=== PATIENT | female | born 1995 | race Two or more races ===

== ENCOUNTER 2016-06-11 10:35 | Emergency (ER) | payer SELFPAY ==
--- NOTE | 2016-06-11 10:50 | ED ---
URI HPI - General Chief Complaint: Upper Respiratory Infection Stated Complaint: flu like symptoms Time Seen by Provider: 06/11/16 10:40 Source: patient, RN notes reviewed Mode of arrival: ambulatory Limitations: no limitations - History of Present Illness Initial Comments: 21-year-old female presenting emergency department with chief complaint of cold like symptoms. Patient states her symptoms started on Thursday. Patient was seen at [facility] and states that she forgot to get a work no. Patient states her symptoms are getting better but she does not feel 100% better. Patient states she itches diagnosed with influenza though she cannot take Tamiflu. Patient has not had a fever last for 4 hours. Patient states she needs a work no as she is a [employer]. Patient denies any other complaints. Patient states she had cough and runny nose fever. - Related Data Home Medications Medication Instructions Recorded Confirmed Albuterol Inhaler [Ventolin 2 sprays INHALATION BID 02/23/15 02/23/15 Inhaler] HYDROcodone/APAP 5-325MG [[place] 1 tab PO Q6HR PRN 02/23/15 02/23/15 5-325] Previous Rx's Medication Instructions Recorded Amoxicillin/Potassium Clav 1 each PO Q12HR #20 tab 02/21/15 [Augmentin 875-125 Tablet] Hydrocodone/Acetaminophen [[place] 1 - 2 each PO Q6HR PRN #60 tab 02/23/15 5-325] Allergies Allergy/AdvReac Type Severity Reaction Status Date / Time latex Allergy Rash/Hives Verified 02/23/15 12:14 red dye Allergy Rash/Hives Verified 02/21/15 10:14 Review of Systems ROS Statement: Those systems with pertinent positive or pertinent negative responses have been documented in the HPI. ROS Other: All systems not noted in ROS Statement are negative. Past Medical History Past Medical History: Asthma History of Any Multi-Drug Resistant Organisms: None Reported Past Surgical History: No Surgical Hx Reported Additional Past Surgical History / Comment(s): D&C Past Anesthesia/Blood Transfusion Reactions: No Reported Reaction Past Psychological History: Anxiety, Bipolar Smoking Status: Current every day smoker Past Alcohol Use History: Rare Past Drug Use History: Marijuana General Exam Limitations: no limitations General appearance: alert, in no apparent distress Head exam: Present: atraumatic, normocephalic, normal inspection Eye exam: Present: normal appearance, PERRL, EOMI. Absent: scleral icterus, conjunctival injection, periorbital swelling ENT exam: Present: normal exam, normal oropharynx, mucous membranes moist, TM's normal bilaterally, normal external ear exam Neck exam: Present: normal inspection. Absent: tenderness, meningismus, lymphadenopathy Respiratory exam: Present: normal lung sounds bilaterally. Absent: respiratory distress, wheezes, rales, rhonchi, stridor Cardiovascular Exam: Present: regular rate, normal rhythm, normal heart sounds. Absent: systolic murmur, diastolic murmur, rubs, gallop, clicks Course Vital Signs 06/11/16 10:37 Temperature 97.3 F L Pulse Rate 89 Respiratory 16 Rate Blood Pressure 122/62 O2 Sat by Pulse 98 Oximetry Disposition Clinical Impression: Upper respiratory infection Disposition: HOME SELF-CARE Condition: Stable Instructions: Upper Respiratory Infection (ED) Additional Instructions: Please return to the Emergency Department if symptoms worsen or any other concerns. Referrals: None,Stated [Primary Care Provider] - 1-2 days Time of Disposition: 10:50
[2016-06-11 11:06] VITALS: BP 112/64; PULSE 82; RESP 18; TEMP 97.8
== END 2016-06-11 11:06 | disposition home or self-care (01) ==
LOC: EC 10:35
DX: J06.9 Acute upper respiratory infection, unspecified (principal); J45.909 Unspecified asthma, uncomplicated; F17.200 Nicotine dependence, unspecified, uncomplicated; Z79.899 Other long term (current) drug therapy; Z91.040 Latex allergy status; Z91.048 Other nonmedicinal substance allergy status
CPT/HCPCS: 99283

== ENCOUNTER 2016-09-28 21:28 | Emergency (ER) | payer SELFPAY ==
[2016-09-28 22:06] VITALS: TEMP 98
--- NOTE | 2016-09-28 22:20 | ED ---
Wound/Laceration HPI - General Stated Complaint: ankle lac-IHS Time Seen by Provider: 09/28/16 22:02 Source: patient Mode of arrival: ambulatory Limitations: no limitations - History of Present Illness Initial Comments: Patient is a 21-year-old white female presenting to the emergency department with complaints of a laceration to her right lateral lower extremity proximal to her right ankle. Onset of injury approximately 2 hours prior to arrival. 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 Patient states that the staff at the snf cleaned the wound. Patient currently complains of a burning pain, rated 4 out of 10, no relieving or aggravating factors. Patient denies numbness or tingling. Patient denies taking any medication prior to arrival. Patient states she is up-to-date on tetanus immunization. Patient denies previous injury or trauma to right lower extremity. Associated Symptoms: none Treatments Prior to Arrival: cold therapy - Related Data Home Medications Medication Instructions Recorded Confirmed No Known Home Medications [No 06/11/16 09/28/16 Known Home Medications] Allergies Allergy/AdvReac Type Severity Reaction Status Date / Time latex Allergy Rash/Hives Verified 09/28/16 22:06 red dye Allergy Rash/Hives Verified 09/28/16 22:06 Review of Systems ROS Statement: Those systems with pertinent positive or pertinent negative responses have been documented in the HPI. ROS Other: All systems not noted in ROS Statement are negative. Past Medical History Past Medical History: Asthma History of Any Multi-Drug Resistant Organisms: None Reported Past Surgical History: No Surgical Hx Reported Additional Past Surgical History / Comment(s): D&C Past Anesthesia/Blood Transfusion Reactions: No Reported Reaction Past Psychological History: Anxiety, Bipolar Smoking Status: Current every day smoker Past Alcohol Use History: Rare Past Drug Use History: Marijuana General Exam Limitations: no limitations General appearance: alert, in no apparent distress Eye exam: Present: normal appearance ENT exam: Present: normal exam, mucous membranes moist, normal external ear exam Neck exam: Present: normal inspection, full ROM. Absent: tenderness, lymphadenopathy Respiratory exam: Present: normal lung sounds bilaterally. Absent: respiratory distress, wheezes, rales, rhonchi, stridor Cardiovascular Exam: Present: regular rate, normal rhythm, normal heart sounds. Absent: systolic murmur GI/Abdominal exam: Present: soft, normal bowel sounds. Absent: tenderness Right Knee exam: Present: normal inspection, full ROM. Absent: tenderness, swelling Lower Leg exam: Present: normal inspection, full ROM, laceration (2 cm linear laceration noted to right lower extremity proximal and lateral to right lateral malleolus.) Ankle exam: Present: normal inspection, full ROM. Absent: tenderness, swelling Foot/Toe exam: Present: normal inspection, full ROM. Absent: tenderness, swelling Neurovascular tendon exam: Present: no vascular compromise. Absent: abnormal cap refill, motor deficit, sensory deficit, tendon deficit, extremity cold to touch, foot drop, significant pain with passive ROM of distal joint Gait: observed and normal Course Vital Signs 09/28/16 22:03 Temperature 98.0 F Pulse Rate 78 Respiratory 18 Rate Blood Pressure 128/75 O2 Sat by Pulse 97 Oximetry Procedures - Laceration Laceration #1 Consent Obtained: verbal consent Indication: laceration Site: lower extremity (Right lower lateral extremity) Size (cm): 2 Description: linear Depth: simple, single layer Anesthetic Used: lidocaine 1% Anesthesia Technique: local infiltration Amount (mls): 2 Pre-repair: wound explored, irrigated extensively, deep structures intact Type of Sutures: nylon Size of Sutures: 5-0 Number of Sutures: 5 Technique: simple, interrupted (4 sutures), vertical mattress Patient Tolerated Procedure: well, no complications Medical Decision Making - Medical Decision Making Laceration to right lateral lower leg proximal to right lateral malleolus. X- ray of right lateral leg with no evidence of foreign body, fracture, dislocation. Laceration repaired. Patient tolerated well. Patient educated on wound care. Patient instructed to return for suture removal and signs and symptoms of infection. Discharge instructions and return parameters reviewed. - Radiology Data Radiology results: report reviewed X-ray right ankle: Soft tissue defect in the lateral lower leg with no evidence of retained radiopaque foreign body. No acute fracture, no dislocation. As read by radiologist Dr. Shetty. Disposition Clinical Impression: Laceration Disposition: HOME SELF-CARE Condition: Good Instructions: Care For Your Stitches (ED), Laceration (ED) Additional Instructions: Postop wound care: Keep wound dry and clean for 24 hours; if dressing accidentally becomes wet, change dressing immediately. Gently clean the edges of the wound daily with a cotton swab saturated with peroxide to remove crust. Return immediately if signs of infection occur such as redness or red streaks progressing up and extremity, increasing pain, swelling, or fevers. Please return for suture removal in 7-10 days or sooner if signs of infection. Please return to the emergency department if symptoms do not improve or get worse. Referrals: None,Stated [Primary Care Provider] - 1-2 days Time of Disposition: 23:01
[2016-09-28] MEDS ORDERED: IBUPROFEN 800 MG TAB PO STA (22:21)
--- NOTE | 2016-09-28 22:39 | XR ---
EXAM: XR Right Ankle Complete, 3 Views CLINICAL HISTORY: Reason: Pain TECHNIQUE: Frontal, lateral and oblique views of the right ankle. COMPARISON: No relevant prior studies available. FINDINGS: Bones/joints: Unremarkable. No acute fracture. No dislocation. Soft tissues: Soft tissue defect in the lateral lower leg with no evidence of retained radiopaque foreign body. IMPRESSION: Soft tissue defect in the lateral lower leg with no evidence of retained radiopaque foreign body.
[2016-09-28 23:34] VITALS: BP 124/60; PULSE 80; RESP 16
== END 2016-09-28 23:32 | disposition home or self-care (01) ==
LOC: EC 21:28
DX: S91.011A Laceration without foreign body, right ankle, initial encounter (principal); W26.8XXA Contact with other sharp object(s), not elsewhere classified, initial encounter; Y93.89 Activity, other specified; Y92.129 Unspecified place in nursing home as the place of occurrence of the external cause; Y99.0 Civilian activity done for income or pay; Z91.040 Latex allergy status; F17.200 Nicotine dependence, unspecified, uncomplicated
CPT/HCPCS: 12001; 99282

== ENCOUNTER 2016-10-15 21:59 | Emergency (ER) | payer OTHER ==
[2016-10-15 22:11] VITALS: BP 115/55; PULSE 74; RESP 20; TEMP 98
--- NOTE | 2016-10-15 22:17 | ED ---
General Adult HPI - General Chief complaint: Extremity Injury, Lower Stated complaint: IHS/Foot Injury Time Seen by Provider: 10/15/16 22:12 Source: patient, RN notes reviewed Mode of arrival: wheelchair Limitations: no limitations - History of Present Illness Initial comments: Patient 21-year-old female who presents emergency room today with a chief complaint of an injury to her right foot that occurred approximate 2 hours ago while she was at work. She does admit that her wheelchair accidentally ran over her right foot. She does admit some pain tenderness locally to the first second metatarsals and digits. Denies any other complaints or associated symptoms. States she has full range motion. Patient denies any recent fever, chills, shortness of breath, chest pain, back pain, abdominal pain, nausea or vomiting, numbness or tingling, dysuria or hematuria, constipation or diarrhea, headaches or visual changes, or any other complaints. - Related Data Previous Rx's Medication Instructions Recorded Ibuprofen [Motrin] 600 mg PO Q6HR PRN #20 day 10/15/16 Allergies Allergy/AdvReac Type Severity Reaction Status Date / Time latex Allergy Rash/Hives Verified 10/15/16 22:11 red dye Allergy Rash/Hives Verified 10/15/16 22:11 Review of Systems ROS Statement: Those systems with pertinent positive or pertinent negative responses have been documented in the HPI. ROS Other: All systems not noted in ROS Statement are negative. Past Medical History Past Medical History: Asthma History of Any Multi-Drug Resistant Organisms: None Reported Past Surgical History: No Surgical Hx Reported Additional Past Surgical History / Comment(s): D&C Past Anesthesia/Blood Transfusion Reactions: No Reported Reaction Past Psychological History: Anxiety, Bipolar Smoking Status: Current every day smoker Past Alcohol Use History: Rare Past Drug Use History: Marijuana General Exam - General Exam Comments Initial Comments: General: The patient is awake and alert, in no distress, and does not appear acutely ill. Neck: The neck is supple, there is no tenderness or JVD. Cardiovascular: There is a regular rate and rhythm. No murmur, rub or gallop is appreciated. Respiratory: Lungs are clear to auscultation, respirations are non-labored, breath sounds are equal. No wheezes, stridor, rales, or rhonchi. Musculoskeletal: Normal appearance of the right foot no obvious deformity. Shows good range of motion. Sensations intact. Pulses equal bilaterally 2+. Mild tenderness over the first and second digit along with the first and second metatarsal. No other bony tenderness to the right ankle or knee Neurological: A&O x 3. CN II-XII intact, There are no obvious motor or sensory deficits. Coordination appears grossly intact. Speech is normal. Skin: Skin is warm and dry and no rashes or lesions are noted. Psychiatric: Normal mood and affect. Limitations: no limitations Course Vital Signs 10/15/16 22:09 Temperature 98.0 F Pulse Rate 74 Respiratory 20 Rate Blood Pressure 115/55 O2 Sat by Pulse 99 Oximetry Medical Decision Making - Medical Decision Making X-rays negative for any acute fracture dislocation. Results were discussed with the patient. Disposition Clinical Impression: Foot contusion Disposition: HOME SELF-CARE Condition: Good Instructions: Foot Contusion (ED) Additional Instructions: Please ice elevate the affected area as discussed and follow-up in 7-10 days if symptoms persist for repeat x-rays. Please return to emergency room if the symptoms increase or worsen or for any other concerns. Prescriptions: Ibuprofen [Motrin] 600 mg PO Q6HR PRN #20 day PRN Reason: Pain Referrals: None,Stated [Primary Care Provider] - 1-2 days Santos Nobles MD [STAFF PHYSICIAN] - 1-2 days Time of Disposition: 22:35
--- NOTE | 2016-10-15 22:33 | XR ---
EXAM: XR Right Foot Complete, 3 or More Views CLINICAL HISTORY: Reason: Pain in the 1st and 2nd digit, toes ran over by a wheelchair. TECHNIQUE: Frontal, lateral and oblique views of the right foot. COMPARISON: None FINDINGS: Bones/joints: No acute fracture or dislocation identified. No significant arthropathy or bony lesion. Soft tissues: Normal. IMPRESSION: No acute abnormality identified.
== END 2016-10-15 22:56 | disposition home or self-care (01) ==
LOC: EC 21:59
DX: S90.30XA Contusion of unspecified foot, initial encounter (principal); W22.8XXA Striking against or struck by other objects, initial encounter; Z91.040 Latex allergy status; Z91.048 Other nonmedicinal substance allergy status; F17.200 Nicotine dependence, unspecified, uncomplicated
CPT/HCPCS: 99283

== ENCOUNTER 2017-04-30 16:50 | Emergency (ER) | payer OTHER ==
--- NOTE | 2017-04-30 18:31 | ED ---
Skin/Abscess/FB HPI - General Chief complaint: Skin/Abscess/Foreign Body Stated complaint: Urogenital, cyst on vagina Time Seen by Provider: 04/30/17 18:17 Source: patient, RN notes reviewed, old records reviewed Mode of arrival: ambulatory Limitations: no limitations - History of Present Illness Initial comments: This patient is a 22-year-old female presents emergency department today chief complaint of an abscess over her right labia. Patient reports that she noticed that initially started as a small pimple approximately one month ago. She states the last week she noticed it started to go grocery the size of a golf ball. She reports that currently it seems to be the size of a small apple. Patient states that she has normal urination in bowel habits. She denies any fever or chills. She does not see an RETAIL DEPARTMENT MANAGER regularly. She denies any chance of and patient is currently on her menstrual cycle. - Related Data Previous Rx's Medication Instructions Recorded HYDROcodone/APAP 5-325MG [[place] 1 tab PO Q6HR PRN #15 tab 04/30/17 5-325] Sulfamethox-Tmp 800-160Mg [Bactrim 1 tab PO Q12HR #40 tab 04/30/17 DS 800-160 mg] Allergies Allergy/AdvReac Type Severity Reaction Status Date / Time diphenhydramine Allergy Unknown Verified 04/30/17 18:48 [From Benadryl] Childhood latex Allergy Rash/Hives Verified 04/30/17 18:48 red dye Allergy Rash/Hives Verified 04/30/17 18:48 venom-honey bee Allergy Anaphylaxis Verified 04/30/17 18:48 Review of Systems ROS Statement: Those systems with pertinent positive or pertinent negative responses have been documented in the HPI. ROS Other: All systems not noted in ROS Statement are negative. Past Medical History Past Medical History: Asthma History of Any Multi-Drug Resistant Organisms: None Reported Past Surgical History: No Surgical Hx Reported Additional Past Surgical History / Comment(s): D&C, left foot sx Past Anesthesia/Blood Transfusion Reactions: No Reported Reaction Past Psychological History: Anxiety, Bipolar Smoking Status: Current every day smoker Past Alcohol Use History: Rare Past Drug Use History: Marijuana General Exam - General Exam Comments Initial Comments: This patient is a 22-year-old female. No acute distress. Alert and oriented. Limitations: no limitations General appearance: alert, in no apparent distress Head exam: Present: atraumatic, normocephalic, normal inspection Eye exam: Present: normal appearance, PERRL, EOMI. Absent: scleral icterus, conjunctival injection, periorbital swelling ENT exam: Present: normal exam, mucous membranes moist Neck exam: Present: normal inspection. Absent: tenderness, meningismus, lymphadenopathy Respiratory exam: Present: normal lung sounds bilaterally. Absent: respiratory distress, wheezes, rales, rhonchi, stridor Cardiovascular Exam: Present: regular rate, normal rhythm, normal heart sounds. Absent: systolic murmur, diastolic murmur, rubs, gallop, clicks GI/Abdominal exam: Present: soft, normal bowel sounds. Absent: distended, tenderness, guarding, rebound, rigid External exam: Present: normal external exam, erythema, swelling (Estrada has significant swelling and erythema noted over the right labia majora.). Absent: lesions, lacerations, ecchymosis Extremities exam: Present: normal inspection, full ROM, normal capillary refill. Absent: tenderness, pedal edema, joint swelling, calf tenderness Back exam: Present: normal inspection Neurological exam: Present: alert, oriented X3, CN II-XII intact Psychiatric exam: Present: normal affect, normal mood Skin exam: Present: warm, dry, intact, normal color. Absent: rash Course Vital Signs 04/30/17 04/30/17 16:57 19:28 Temperature 98.9 F 98.5 F Pulse Rate 109 H 78 Respiratory 18 16 Rate Blood Pressure 147/60 113/62 O2 Sat by Pulse 98 98 Oximetry Procedures - Incision & Drainage Site: vulva/vagina (right bartholin gland abscess) Anesthetic Used: lidocaine 1% Amount (mLs): 3 I&D Cleaning Method: Iodine Sterile Field Used?: Yes Scalpel Used: #11 I&D Drainage Obtained: Pus, Blood Packing: Other (word catheter) Culture Obtained?: Yes Patient Tolerated Procedure: well, no complications Medical Decision Making - Medical Decision Making This patient is a 22-year-old female presents emergency department today chief complaint of an abscess over her right labia. Patient reports that she noticed that initially started as a small pimple approximately one month ago. She states the last week she noticed it started to go grocery the size of a golf ball. Patient has evidence of a Bartholin's gland abscess. I hate did do incision and drainage in place in word catheter in the area. Patient will be started on Bactrim. One culture was obtained. Patient will follow up with OB/ [employer]AB[employer]ER. All questions were answered in return parameters were discussed. Discharge with pain medicine Antibiotics. Discussed sits baths. Disposition Clinical Impression: Bartholin's gland abscess Disposition: HOME SELF-CARE Condition: Good Instructions: Bartholin Cyst (ED) Additional Instructions: Patient advised to follow-up with RETAIL DEPARTMENT MANAGER within the next 1-2 days. If the Word catheter falls out, apply gauze over the area. Patient should do warm sits baths. Take the antibiotics as directed. Return to the emergency department if any alarming signs or symptoms occur. Prescriptions: HYDROcodone/APAP 5-325MG [[place] 5-325] 1 tab PO Q6HR PRN #15 tab PRN Reason: Pain Sulfamethox-Tmp 800-160Mg [Bactrim DS 800-160 mg] 1 tab PO Q12HR #40 tab Referrals: None,Stated [Primary Care Provider] - 1-2 days Lala Reid MD [STAFF PHYSICIAN] - 1-2 days Time of Disposition: 19:02
[2017-04-30] MEDS ORDERED: SULFAMETH-TMP DS STARTER PACK 2 TAB BTL PO STA (19:07)
[2017-04-30] MEDS ORDERED: HYDROcodone/APAP 5-325MG 1 EACH TAB PO STA (19:07)
[2017-04-30 19:28] VITALS: BP 113/62; PULSE 78; RESP 16; TEMP 98.5
== END 2017-04-30 19:30 | disposition home or self-care (01) ==
LOC: EC 16:50
DX: N75.1 Abscess of Bartholin's gland (principal); F17.200 Nicotine dependence, unspecified, uncomplicated; Z98.890 Other specified postprocedural states; Z91.040 Latex allergy status; Z91.02 Food additives allergy status; Z91.030 Bee allergy status
CPT/HCPCS: 87070; 87205; 99283

== ENCOUNTER 2017-05-05 07:06 | Emergency (ER) | payer OTHER ==
[2017-05-05] MEDS ORDERED: MORPHINE SULFATE 2 MG/ML SYRINGE IV STA (07:37)
[2017-05-05] MEDS ORDERED: SODIUM CHLORIDE 0.9% 1,000 ML IV STA (07:37)
[2017-05-05] MEDS ORDERED: ONDANSETRON 4 MG/2 ML VIAL IVP STA (07:37)
[2017-05-05] MEDS ORDERED: RX INFO: IV CONTRAST WAS GIVEN 1 EACH MISC MISCELLANE PRN (07:37)
[2017-05-05] MEDS ORDERED: SODIUM CHLORIDE 0.9% 500 ML IV STA (07:37)
[2017-05-05 07:52] LABS: Basophils % (A) 0 %; Eosinophils # (A) 0.1 k/uL (0-0.7); Eosinophils % (A) 1 %; HCT 42.4 % (34.0-46.0); HGB 13.8 gm/dL (11.4-16.0); Lymphocytes % (A) 14 %; MCH 27.5 pg (25.0-35.0); MCHC 32.4 g/dL (31.0-37.0); MCV 84.9 fL (80.0-100.0); Mean Platelet Volume 6.7; Monocytes # (A) 0.4 k/uL (0-1.0); Monocytes % (A) 5 %; Neutrophils # (A) 5.4 k/uL (1.3-7.7); Neutrophils % (A) 77 %; Platelet Count 306 k/uL (150-450)
--- NOTE | 2017-05-05 07:54 | ED ---
General Adult HPI - General Chief complaint: Nausea/Vomiting/Diarrhea Stated complaint: vomiting Time Seen by Provider: 05/05/17 07:28 Source: patient, family, RN notes reviewed Mode of arrival: wheelchair Limitations: no limitations - History of Present Illness Initial comments: 22-year-old female presented for evaluation of worsening pelvic pain. Patient had a global cyst drained approximately 5 days ago in the emergency partner. She was placed on pain medication and antibiotics. She has been unable to tolerate her pain medications secondary to nausea and vomiting. She also has worsening pain. Patient has past medical history of asthma. States she is having some lower abdominal pain and thigh pain associated with her labial abscess. She also complains of cough and nasal congestion. Denies dysuria. Subjective fever and chills. - Related Data Previous Rx's Medication Instructions Recorded HYDROcodone/APAP 5-325MG [[place] 1 tab PO Q6HR PRN #15 tab 04/30/17 5-325] Sulfamethox-Tmp 800-160Mg [Bactrim 1 tab PO Q12HR #40 tab 04/30/17 DS 800-160 mg] HYDROcodone/APAP 5-325MG [[place] 1 tab PO Q6HR PRN #12 tab 05/05/17 5-325] Ibuprofen [Motrin] 600 mg PO Q8HR PRN #24 tab 05/05/17 Oseltamivir [Tamiflu] 75 mg PO Q12HR #10 cap 05/05/17 Allergies Allergy/AdvReac Type Severity Reaction Status Date / Time diphenhydramine Allergy Unknown Verified 05/05/17 07:51 [From Benadryl] Childhood latex Allergy Rash/Hives Verified 05/05/17 07:51 red dye Allergy Rash/Hives Verified 05/05/17 07:51 venom-honey bee Allergy Anaphylaxis Verified 05/05/17 07:51 Review of Systems ROS Statement: Those systems with pertinent positive or pertinent negative responses have been documented in the HPI. ROS Other: All systems not noted in ROS Statement are negative. Past Medical History Past Medical History: Asthma History of Any Multi-Drug Resistant Organisms: None Reported Past Surgical History: No Surgical Hx Reported, Orthopedic Surgery Additional Past Surgical History / Comment(s): D&C, left foot sx Past Anesthesia/Blood Transfusion Reactions: No Reported Reaction Past Psychological History: Anxiety, Bipolar Smoking Status: Current every day smoker Past Alcohol Use History: Rare Past Drug Use History: Marijuana General Exam Limitations: no limitations General appearance: alert, in distress Head exam: Present: atraumatic, normocephalic Eye exam: Present: normal appearance, PERRL, EOMI ENT exam: Present: normal exam Neck exam: Present: normal inspection. Absent: tenderness, meningismus Respiratory exam: Present: normal lung sounds bilaterally. Absent: respiratory distress, wheezes Cardiovascular Exam: Present: regular rate, normal rhythm GI/Abdominal exam: Present: soft. Absent: distended, tenderness External exam: Present: swelling (Right labial swelling and erythema, improving compared to previous exam.) Extremities exam: Present: normal inspection, full ROM, tenderness Back exam: Present: normal inspection, full ROM, tenderness Neurological exam: Present: alert, oriented X3, CN II-XII intact. Absent: motor sensory deficit Psychiatric exam: Present: normal affect, normal mood Skin exam: Present: warm, dry, intact. Absent: cyanosis, diaphoretic Course Vital Signs 05/05/17 05/05/17 07:10 08:49 Temperature 100.5 F H Pulse Rate 100 83 Respiratory 26 H 16 Rate Blood Pressure 133/71 127/59 O2 Sat by Pulse 98 98 Oximetry Procedures - Incision & Drainage Consent Obtained: verbal consent Time Out Performed?: Yes Indication: Bartholin's gland abscess Site: vulva/vagina Anesthetic Used: lidocaine 1% Amount (mLs): 3 I&D Cleaning Method: Betadine Sterile Field Used?: Yes Scalpel Used: #11 I&D Drainage Obtained: Pus, Blood Packing: Plain Patient Tolerated Procedure: well Medical Decision Making - Medical Decision Making 22-year-old female presenting with swelling symptoms and pain and swelling in her right labia. She recently had a Bartholin's gland abscess incised. Pain is been worsening. On examination, patient does have a large fluctuant mass consistent with abscess. CT is obtained given the patient's state of extremities on presentation. This is negative for intra-abdominal findings, there is a 3.7 cm x 2.[address] Laboratory studies reveal normal white blood cell count, stable hemoglobin, normal lactic acid, patient's influenza A positive. She does have history of asthma and will be treated with Tamiflu. She is also instructed to continue her antibiotics for her Bartholin's gland abscess. She will follow-up with BRAIN WAVE TECHNICIAN and her primary care physician. - Lab Data Result diagrams: 05/05/17 07:40 05/05/17 07:40 Lab Results 05/05/17 05/05/17 05/05/17 Range/Units 07:40 07:40 07:40 WBC 7.0 (3.8-10.6) k/uL RBC 5.00 (3.80-5.40) m/uL Hgb 13.8 (11.4-16.0) gm/dL Hct 42.4 (34.0-46.0) % MCV 84.9 (80.0-100.0) fL MCH 27.5 (25.0-35.0) pg MCHC 32.4 (31.0-37.0) g/dL RDW 13.0 (11.5-15.5) % Plt Count 306 (150-450) k/uL Neutrophils % 77 % Lymphocytes % 14 % Monocytes % 5 % Eosinophils % 1 % Basophils % 0 % Neutrophils # 5.4 (1.3-7.7) k/uL Lymphocytes # 1.0 (1.0-4.8) k/uL Monocytes # 0.4 (0-1.0) k/uL Eosinophils # 0.1 (0-0.7) k/uL Basophils # 0.0 (0-0.2) k/uL Sodium 139 (137-145) mmol/L Potassium 4.3 (3.5-5.1) mmol/L Chloride 104 (98-107) mmol/L Carbon Dioxide 20 L (22-30) mmol/L Anion Gap 15 mmol/L BUN 10 (7-17) mg/dL Creatinine 0.83 (0.52-1.04) mg/dL Est GFR (MDRD) Af Amer >60 (>60 ml/min/1.73 sqM) Est GFR (MDRD) Non-Af >60 (>60 ml/min/1.73 sqM) Glucose 113 H (74-99) mg/dL Plasma Lactic Acid Ashish 1.3 (0.7-2.0) mmol/L Calcium 9.7 (8.4-10.2) mg/dL Total Bilirubin 0.4 (0.2-1.3) mg/dL AST 22 (14-36) U/L ALT 21 (9-52) U/L Alkaline Phosphatase 70 (38-126) U/L Total Protein 7.1 (6.3-8.2) g/dL Albumin 4.2 (3.5-5.0) g/dL Amylase 44 (30-110) U/L Lipase 38 (23-300) U/L Urine Color Urine Appearance (Clear) Urine pH (5.0-8.0) Ur Specific [place] (1.001-1.035) Urine Protein (Negative) Urine Glucose (UA) (Negative) Urine Ketones (Negative) Urine Blood (Negative) Urine Nitrite (Negative) Urine Bilirubin (Negative) Urine Urobilinogen (<2.0) mg/dL Ur Leukocyte Esterase (Negative) Urine RBC (0-5) /hpf Urine WBC (0-5) /hpf Ur Squamous Epith Cells (0-4) /hpf Urine Mucus (None) /hpf Urine HCG, Qual (Not Detectd) Influenza Type A RNA (Not Detectd) Influenza Type B (PCR) (Not Detectd) 05/05/17 05/05/17 05/05/17 Range/Units 07:51 08:08 08:08 WBC (3.8-10.6) k/uL RBC (3.80-5.40) m/uL Hgb (11.4-16.0) gm/dL Hct (34.0-46.0) % MCV (80.0-100.0) fL MCH (25.0-35.0) pg MCHC (31.0-37.0) g/dL RDW (11.5-15.5) % Plt Count (150-450) k/uL Neutrophils % % Lymphocytes % % Monocytes % % Eosinophils % % Basophils % % Neutrophils # (1.3-7.7) k/uL Lymphocytes # (1.0-4.8) k/uL Monocytes # (0-1.0) k/uL Eosinophils # (0-0.7) k/uL Basophils # (0-0.2) k/uL Sodium (137-145) mmol/L Potassium (3.5-5.1) mmol/L Chloride (98-107) mmol/L Carbon Dioxide (22-30) mmol/L Anion Gap mmol/L BUN (7-17) mg/dL Creatinine (0.52-1.04) mg/dL Est GFR (MDRD) Af Amer (>60 ml/min/1.73 sqM) Est GFR (MDRD) Non-Af (>60 ml/min/1.73 sqM) Glucose (74-99) mg/dL Plasma Lactic Acid Ashish (0.7-2.0) mmol/L Calcium (8.4-10.2) mg/dL Total Bilirubin (0.2-1.3) mg/dL AST (14-36) U/L ALT (9-52) U/L Alkaline Phosphatase (38-126) U/L Total Protein (6.3-8.2) g/dL Albumin (3.5-5.0) g/dL Amylase (30-110) U/L Lipase (23-300) U/L Urine Color Yellow Urine Appearance Cloudy H (Clear) Urine pH 6.0 (5.0-8.0) Ur Specific [place] 1.024 (1.001-1.035) Urine Protein 1+ H (Negative) Urine Glucose (UA) Negative (Negative) Urine Ketones 2+ H (Negative) Urine Blood Negative (Negative) Urine Nitrite Negative (Negative) Urine Bilirubin Negative (Negative) Urine Urobilinogen <2.0 (<2.0) mg/dL Ur Leukocyte Esterase Trace H (Negative) Urine RBC 16 H (0-5) /hpf Urine WBC 3 (0-5) /hpf Ur Squamous Epith Cells 7 H (0-4) /hpf Urine Mucus Moderate H (None) /hpf Urine HCG, Qual Not Detected (Not Detectd) Influenza Type A RNA Detected H (Not Detectd) Influenza Type B (PCR) Not Detected (Not Detectd) Disposition Clinical Impression: Influenza A, Bartholin's gland abscess Disposition: HOME SELF-CARE Condition: Good Instructions: Bartholin Cyst (ED), Incision and Drainage (ED) Prescriptions: HYDROcodone/APAP 5-325MG [[place] 5-325] 1 tab PO Q6HR PRN #12 tab PRN Reason: Pain Ibuprofen [Motrin] 600 mg PO Q8HR PRN #24 tab PRN Reason: Pain Oseltamivir [Tamiflu] 75 mg PO Q12HR #10 cap Referrals: None,Stated [Primary Care Provider] - 1-2 days Lala Reid MD [STAFF PHYSICIAN] - 1-2 days Time of Disposition: 10:38
[2017-05-05 08:17] LABS: ALT 21 U/L (9-52); AST 22 U/L (14-36); Albumin 4.2 g/dL (3.5-5.0); Alkaline Phosphatase 70 U/L (38-126); Amylase 44 U/L (30-110); Anion Gap 15 mmol/L; Blood Urea Nitrogen 10 mg/dL (7-17); Calcium 9.7 mg/dL (8.4-10.2); Carbon Dioxide 20 mmol/L (22-30); Chloride 104 mmol/L (98-107); Glucose 113 mg/dL (74-99); Lipase 38 U/L (23-300); Potassium 4.3 mmol/L (3.5-5.1); Sodium 139 mmol/L (137-145); Total Bilirubin 0.4 mg/dL (0.2-1.3); Total Protein 7.1 g/dL (6.3-8.2)
[2017-05-05 08:23] LABS: Appearance,Urine Cloudy (Clear); Bilirubin,Urine Negative (Negative); Blood,Urine Negative (Negative); Color,Urine Yellow; Glucose,Urine (UA) Negative (Negative); Ketones,Urine 2+ (Negative); Leukocyte Esterase,Urine Trace (Negative); Mucus,Urine Moderate /hpf; Nitrite,Urine Negative (Negative); Protein,Urine 1+ (Negative); RBC,Urine 16 /hpf (0-5); Specific Gravity,Urine 1.024 (1.001-1.035); Squamous Epithelial Cell,Urine 7 /hpf (0-4); Urobilinogen,Urine <2.0 mg/dL (<2.0); WBC,Urine 3 /hpf (0-5)
--- NOTE | 2017-05-05 09:10 | CT ---
EXAMINATION TYPE: CT abdomen pelvis w con DATE OF EXAM: 05/05/2017 HISTORY: Right sided pelvic and vaginal pain CT DLP: 650.1mGycm Automated Exposure Control for Dose Reduction was Utilized. CONTRAST: CT scan of the abdomen and pelvis is performed with IV Contrast, patient injected with 100 mL of Omni paque 300. COMPARISON: None. FINDINGS: LUNG BASES: No significant abnormality is appreciated. LIVER/GB: No significant abnormality is appreciated. No cholelithiasis. PANCREAS: No significant abnormality is seen. No ductal dilatation. SPLEEN: No significant abnormality is seen. No enlargement. ADRENALS: No significant abnormality is seen. No nodularity. KIDNEYS: Kidneys enhance and excrete symmetrically without hydronephrosis. BOWEL: No significant abnormality is seen. UTERUS/ADNEXA: Serpiginous tubular structure within the right adnexa is seen closely associated with the gonadal vein and uterus. Given the patient's right-sided pelvic pain and vaginal pain this could represent hydrosalpinx and/or pyosalpinx, however this is also closely associated with bowel and coul d represent air-fluid levels within the adjacent nondilated bowel. Folding could represent mural excr escences or valvulae conniventes 8. Follicular changes are seen of the left ovary measuring up to 1.7 cm. Nabothian cysts are seen within the cervix. Endometrial low density is likely related to the pha se of menses. No free fluid. Additionally within the right vaginal cuff at the posterior aspect of the labia majora there is a 3.7 x 2.3 cm fluid attenuated Bartholin gland cyst below the pubic symphysis with mild surrounding infla mmatory change, this may be superinfected. LYMPH NODES: No greater than 1cm abdominal or pelvic lymph nodes are appreciated. OSSEOUS STRUCTURES: No significant abnormality is seen. IMPRESSION: 1. Right adnexal serpiginous hilar structures closely associated with the gonadal vein and uterus giv en the patient's symptoms considerations are for hydrosalpinx, pyosalpinx, or adjacent loops of small bowel. Pelvic ultrasound is recommended for further evaluation. 2. 3.7 x 2.3 cm right Bartholin gland cyst with mild surrounding inflammatory change, possible superi nfection.
[2017-05-05] MEDS ORDERED: KETOROLAC 30 MG/ML 1 ML VIAL IVP STA (09:22)
--- NOTE | 2017-05-05 10:20 | US ---
EXAMINATION TYPE: US transvaginal DATE OF EXAM: 05/05/2017 COMPARISON: NONE CLINICAL HISTORY: Pain. TECHNIQUE: Transvaginal (TV) Date of LMP: 04/26/2017, EXAM MEASUREMENTS: Uterus: 6.3 x 4.9 x 3.1 cm Endometrial Stripe: 0.6 cm Right Ovary: 2.9 x 1.8 x 2.0 cm Left Ovary: 2.5 x 2.0 x 1.5 cm Limited exam due to patient pain 1. Uterus: Anteverted wnl 2. Endometrium: wnl 3. Right Ovary: Follicles seen 4. Left Ovary: Dominant follicle = 1.8 cm Spectral, color and waveform doppler imaging shows good arterial and venous flow within the ovaries ; there is no evidence for ovarian torsion. 5. Bilateral Adnexa: wnl. No prominent masses or lesions seen. 6. Posterior cul-de-sac: no free fluid IMPRESSION: 1. The previously seen right lower quadrant serpiginous density in the prior CT is not redemonstrated and therefore related to loops of nondilated small bowel with air-fluid levels representing mild ile us. 2. Follicular changes of the ovaries without ovarian cyst. 3. Unremarkable endometrial thickness and uterus echogenicity.
[2017-05-05 11:04] VITALS: BP 115/56; PULSE 73; RESP 18; TEMP 98.8
== END 2017-05-05 11:06 | disposition home or self-care (01) ==
LOC: EC 07:06
DX: N75.1 Abscess of Bartholin's gland (principal); J10.1 Influenza due to other identified influenza virus with other respiratory manifestations; R11.2 Nausea with vomiting, unspecified; F17.200 Nicotine dependence, unspecified, uncomplicated; Z88.8 Allergy status to other drugs, medicaments and biological substances; Z91.030 Bee allergy status; Z91.040 Latex allergy status; Z91.048 Other nonmedicinal substance allergy status
CPT/HCPCS: 99284; 56420; 96374; 96375 ×2; 96361 ×3; 36415; 80053; 82150; 83605; 83690; 85025; 81001; 81025; 87086; 87502; 93975; 76830; 74177; J2405; J1885; J2270; Q9967

== ENCOUNTER 2019-04-11 07:37 | Emergency (ER) | payer OTHER ==
[2019-04-11 07:44] VITALS: BP 156/92; PULSE 63; TEMP 98.2
[2019-04-11] MEDS ORDERED: HYDROmorphone 1 MG/ML 1 ML SYRINGE IM STA (07:58)
--- NOTE | 2019-04-11 08:01 | ED ---
Female Urogenital HPI - General Chief complaint: Urogenital Stated complaint: cyst Time Seen by Provider: 04/11/19 07:45 Source: patient, RN notes reviewed Mode of arrival: ambulatory Limitations: no limitations - History of Present Illness Initial comments: 24-year-old female presents emergency Department with chief complaint of Bartholin's cyst. Patient states that she's had these recurrent 3-4 times a year. Patient states she's had them drained in the past. This was started approximate 4-5 days ago states that she was seen at [facility] was given amoxicillin and Motrin. She states it's not helping. Patient has not scheduled appointment with an STAMPING MACHINE OPERATOR. Patient denies fever, chills no vaginal discharge. No dysuria no hematuria denies any chance . Last Menstrual Period: 03/31/19 - Related Data Previous Rx's Medication Instructions Recorded HYDROcodone/APAP 5-325MG [[place] 1 tab PO Q6HR PRN #15 tab 04/30/17 5-325] Sulfamethox-Tmp 800-160Mg [Bactrim 1 tab PO Q12HR #40 tab 04/30/17 DS 800-160 mg] HYDROcodone/APAP 5-325MG [[place] 1 tab PO Q6HR PRN #12 tab 05/05/17 5-325] Ibuprofen [Motrin] 600 mg PO Q8HR PRN #24 tab 05/05/17 Oseltamivir [Tamiflu] 75 mg PO Q12HR #10 cap 05/05/17 Hydrocodone/Acetaminophen [[place] 1 tab PO Q6HR PRN #12 tab 04/11/19 5-325] Sulfamethox-Tmp 800-160Mg [Bactrim 1 each PO Q12HR #20 tab 04/11/19 Ds] Allergies Allergy/AdvReac Type Severity Reaction Status Date / Time diphenhydramine Allergy Unknown Verified 04/11/19 07:44 [From Benadryl] Childhood latex Allergy Rash/Hives Verified 04/11/19 07:44 red dye Allergy Rash/Hives Verified 04/11/19 07:44 venom-honey bee Allergy Anaphylaxis Verified 04/11/19 07:44 Review of Systems ROS Statement: Those systems with pertinent positive or pertinent negative responses have been documented in the HPI. ROS Other: All systems not noted in ROS Statement are negative. Past Medical History Past Medical History: Asthma Additional Past Medical History / Comment(s): barthalon cysts History of Any Multi-Drug Resistant Organisms: None Reported Past Surgical History: No Surgical Hx Reported, Orthopedic Surgery Additional Past Surgical History / Comment(s): D&C, left foot sx Past Anesthesia/Blood Transfusion Reactions: No Reported Reaction Past Psychological History: Anxiety, Depression Smoking Status: Current every day smoker Past Alcohol Use History: Rare Past Drug Use History: Marijuana General Exam Limitations: no limitations General appearance: alert, in no apparent distress Head exam: Present: atraumatic, normocephalic, normal inspection Eye exam: Present: normal appearance, PERRL, EOMI. Absent: scleral icterus, conjunctival injection, periorbital swelling Respiratory exam: Present: normal lung sounds bilaterally. Absent: respiratory distress, wheezes, rales, rhonchi, stridor Cardiovascular Exam: Present: regular rate, normal rhythm, normal heart sounds. Absent: systolic murmur, diastolic murmur, rubs, gallop, clicks External exam: Present: swelling (Mild swelling and right lower labial region, there is times with palpation no drainage noted exam performed with RN). Absent: normal external exam Course Vital Signs 04/11/19 04/11/19 07:40 08:17 Temperature 98.2 F Pulse Rate 63 Respiratory 24 20 Rate Blood Pressure 156/92 O2 Sat by Pulse 95 Oximetry Medical Decision Making - Medical Decision Making I offered patient I&D of her Bartholin's cyst. Patient states she's had this done in the past, usually just comes back. She prefers to have pain control, antibiotics with close follow-up she'll return for any change in symptoms. Disposition Clinical Impression: Bartholin's gland cyst Disposition: HOME SELF-CARE Condition: Stable Instructions (If sedation given, give patient instructions): Bartholin Cyst (ED) Additional Instructions: Please return to the Emergency Department if symptoms worsen or any other concerns. Prescriptions: Sulfamethox-Tmp 800-160Mg [Bactrim Ds] 1 each PO Q12HR #20 tab Hydrocodone/Acetaminophen [[place] 5-325] 1 tab PO Q6HR PRN #12 tab PRN Reason: Pain Is patient prescribed a controlled substance at d/c from ED?: Yes When asked, does pt state using other controlled substances?: No If prescribed controlled substance>3 days was MAPS reviewed?: Prescribed <3 Days If opioid is for acute pain is fill amount 7 days or less?: Yes If Rx opioid, was Start Talking consent form obtained?: Yes Referrals: None,Stated [Primary Care Provider] - 1-2 days Time of Disposition: 08:01
[2019-04-11 08:18] VITALS: RESP 20
== END 2019-04-11 08:18 | disposition home or self-care (01) ==
LOC: EC 07:37
DX: N75.0 Cyst of Bartholin's gland (principal); F17.200 Nicotine dependence, unspecified, uncomplicated; Z88.8 Allergy status to other drugs, medicaments and biological substances; Z91.030 Bee allergy status; Z91.040 Latex allergy status; Z91.048 Other nonmedicinal substance allergy status
CPT/HCPCS: 99282; 96372; J1170

== ENCOUNTER 2019-04-15 07:47 | Emergency (ER) | payer OTHER ==
[2019-04-15] MEDS ORDERED: LIDOCAINE 1% INJ 10MG/ML (20 ML MDV) SQ ONE (08:18)
[2019-04-15] MEDS ORDERED: ACETAMINOPHEN TAB 325 MG TAB PO STA (09:15)
[2019-04-15] MEDS ORDERED: ONDANSETRON ODT 4 MG TAB PO STA (09:15)
--- NOTE | 2019-04-15 09:20 | ED ---
General Adult HPI - General Chief complaint: Skin/Abscess/Foreign Body Stated complaint: Fell/cyst Time Seen by Provider: 04/15/19 08:06 Source: patient, RN notes reviewed Mode of arrival: ambulatory Limitations: no limitations - History of Present Illness Initial comments: Laura is a 24-year-old female presented for Bartholin's gland cyst. States this has been there for over a week. However today patient tripped and fell in her heel hit her cyst and she had increased pain. Patient states she gets these 3-4 times per year. At states she is currently on antibiotics for these but it does not seem to be getting better. She denies fevers or chills. She states that last time she was here for the antibiotics it was not well formed enough to have an incision and drainage performed however at this time she thinks there is enough pus.Patient has no other complaints at this time including shortness of breath, chest pain, abdominal pain, nausea or vomiting, headache, or visual changes. - Related Data Previous Rx's Medication Instructions Recorded HYDROcodone/APAP 5-325MG [[place] 1 tab PO Q6HR PRN #15 tab 04/30/17 5-325] Sulfamethox-Tmp 800-160Mg [Bactrim 1 tab PO Q12HR #40 tab 04/30/17 DS 800-160 mg] HYDROcodone/APAP 5-325MG [[place] 1 tab PO Q6HR PRN #12 tab 05/05/17 5-325] Ibuprofen [Motrin] 600 mg PO Q8HR PRN #24 tab 05/05/17 Oseltamivir [Tamiflu] 75 mg PO Q12HR #10 cap 05/05/17 Hydrocodone/Acetaminophen [[place] 1 tab PO Q6HR PRN #12 tab 04/11/19 5-325] Sulfamethox-Tmp 800-160Mg [Bact[place] 1 each PO Q12HR #20 tab 04/11/19 Ds] Allergies Allergy/AdvReac Type Severity Reaction Status Date / Time diphenhydramine Allergy Unknown Verified 04/15/19 07:51 [From Benadryl] Childhood latex Allergy Rash/Hives Verified 04/15/19 07:51 red dye Allergy Rash/Hives Verified 04/15/19 07:51 venom-honey bee Allergy Anaphylaxis Verified 04/15/19 07:51 Review of Systems ROS Statement: Those systems with pertinent positive or pertinent negative responses have been documented in the HPI. ROS Other: All systems not noted in ROS Statement are negative. Past Medical History Past Medical History: Asthma Additional Past Medical History / Comment(s): barthalon cysts History of Any Multi-Drug Resistant Organisms: None Reported Past Surgical History: No Surgical Hx Reported, Orthopedic Surgery Additional Past Surgical History / Comment(s): D&C, left foot sx Past Anesthesia/Blood Transfusion Reactions: No Reported Reaction Past Psychological History: Anxiety, Depression Smoking Status: Current some day smoker Past Alcohol Use History: Occasional Past Drug Use History: Marijuana General Exam Limitations: no limitations General appearance: alert, in no apparent distress Head exam: Present: atraumatic, normocephalic, normal inspection Eye exam: Present: normal appearance, PERRL, EOMI. Absent: scleral icterus, conjunctival injection, periorbital swelling ENT exam: Present: normal exam, mucous membranes moist Neck exam: Present: normal inspection, full ROM. Absent: tenderness, meningismus, lymphadenopathy Respiratory exam: Present: normal lung sounds bilaterally. Absent: respiratory distress, wheezes, rales, rhonchi, stridor Cardiovascular Exam: Present: regular rate, normal rhythm, normal heart sounds. Absent: systolic murmur, diastolic murmur, rubs, gallop, clicks GI/Abdominal exam: Present: soft, normal bowel sounds. Absent: distended, tenderness, guarding, rebound, rigid External exam: Present: swelling (There is a 2 cm right Bartholin's gland cyst). Absent: normal external exam, erythema, lesions, lacerations, ecchymosis Course Vital Signs 04/15/19 07:51 Temperature 99.3 F Pulse Rate 89 Respiratory 18 Rate Blood Pressure 117/75 O2 Sat by Pulse 96 Oximetry Procedures - Incision & Drainage Consent Obtained: verbal consent Indication: Cyst Site: vulva/vagina Size (cm): 2 Anesthetic Used: lidocaine 1% Amount (mLs): 2 I&D Cleaning Method: Chloroprep Sterile Field Used?: Yes Scalpel Used: #11 I&D Drainage Obtained: Pus, Blood Patient Tolerated Procedure: well, no complications Medical Decision Making - Medical Decision Making No fevers or chills. Incision and drainage was performed without difficulty. I did offer a Word catheter however patient refused this after procedure stating that she would like to try to not use at this time. Patient is already on antibiotics and will continue these. She requests nonemergent [facility] follow-up for Bartholin's gland removal. She will return if she has any worsening symptoms. Disposition Clinical Impression: Bartholin's gland cyst Disposition: HOME SELF-CARE Condition: Good Instructions (If sedation given, give patient instructions): Abscess (ED), Bartholin Cyst (ED) Additional Instructions: Continue antibiotics as needed. Follow-up with SECURITY [facility]LY. If you have any worsening symptoms return to the emergency department. Is patient prescribed a controlled substance at d/c from ED?: No Referrals: Kimberly Stephens DO [Doctor of Osteopathic Medicine] - 1-2 days Time of Disposition: 09:18
[2019-04-15 09:59] VITALS: BP 115/60; PULSE 78; RESP 16; TEMP 97
== END 2019-04-15 09:58 | disposition home or self-care (01) ==
LOC: EC 07:47
DX: N75.0 Cyst of Bartholin's gland (principal); F17.200 Nicotine dependence, unspecified, uncomplicated; Z88.8 Allergy status to other drugs, medicaments and biological substances; Z91.030 Bee allergy status; Z91.040 Latex allergy status; Z91.048 Other nonmedicinal substance allergy status; W01.0XXA Fall on same level from slipping, tripping and stumbling without subsequent striking against object, initial encounter; Y92.009 Unspecified place in unspecified non-institutional (private) residence as the place of occurrence of the external cause; Z53.20 Procedure and treatment not carried out because of patient's decision for unspecified reasons
CPT/HCPCS: 99283; 56420; J2001

== ENCOUNTER 2019-11-05 17:39 | Inpatient (IN) | payer OTHER ==
[2019-11-05] MEDS ORDERED: SODIUM CHLORIDE 0.9% 1,000 ML IV STA (19:03)
[2019-11-05] MEDS ORDERED: SODIUM CHLORIDE 0.9% 500 ML 500 ML IV STA (19:03)
[2019-11-05] MEDS ORDERED: ONDANSETRON 4 MG/2 ML VIAL IVP STA (19:03)
[2019-11-05] MEDS ORDERED: FAMOTIDINE 20 MG/2 ML VIAL IV STA (19:03)
--- NOTE | 2019-11-05 19:14 | ED ---
Nausea/Vomiting/Diarrhea HPI - General Chief complaint: Nausea/Vomiting/Diarrhea Stated complaint: vomiting Time Seen by Provider: 11/05/19 18:23 Source: patient Mode of arrival: ambulatory Limitations: no limitations - History of Present Illness Initial comments: 24-year-old female patient presents to the emergency department today for evaluation of nausea, vomiting, diarrhea. Patient states she is having associated abdominal cramping and discomfort. States the pain is generalized. Patient did have temperature as high as 102F yesterday. States she did take Tylenol approximately 3 hours ago. Patient states she's had several episodes of vomiting today is unable to keep down any food or fluids. Denies any sick contacts or recent travel. Denies any known contact with anyone diagnosed with COVID-19. Denies any history of abdominal surgery. States she is otherwise healthy. Denies any concern for . Patient denies any recent rash, cough, shortness of breath, chest pain, back pain, numbness, tingling, dizziness, weakness, hematuria, dysuria, urinary urgency, urinary frequency, headache, visual changes, or any other complaints. - Related Data Home Medications Medication Instructions Recorded Confirmed No Known Home Medications 11/05/19 11/05/19 Allergies Allergy/AdvReac Type Severity Reaction Status Date / Time latex Allergy Rash/Hives Verified 11/05/19 20:16 red dye Allergy Anaphylaxis Verified 11/05/19 20:16 venom-honey bee Allergy Anaphylaxis Verified 11/05/19 20:16 Review of Systems ROS Statement: Those systems with pertinent positive or pertinent negative responses have been documented in the HPI. ROS Other: All systems not noted in ROS Statement are negative. Past Medical History Past Medical History: Asthma Additional Past Medical History / Comment(s): barthalon cysts History of Any Multi-Drug Resistant Organisms: None Reported Past Surgical History: Orthopedic Surgery Additional Past Surgical History / Comment(s): D&C, left foot sx Past Anesthesia/Blood Transfusion Reactions: No Reported Reaction Past Psychological History: Anxiety, Depression Smoking Status: Current some day smoker Past Alcohol Use History: Occasional Past Drug Use History: Marijuana General Exam Limitations: no limitations General appearance: alert, in no apparent distress, other (this is a well- developed, well-nourished adult female patient in no acute distress. ) Eye exam: Present: normal appearance, PERRL, EOMI. Absent: scleral icterus, conjunctival injection, periorbital swelling ENT exam: Present: normal exam, normal oropharynx, mucous membranes moist Respiratory exam: Present: normal lung sounds bilaterally. Absent: respiratory distress, wheezes, rales, rhonchi, stridor Cardiovascular Exam: Present: regular rate, normal rhythm, normal heart sounds. Absent: systolic murmur, diastolic murmur, rubs, gallop, clicks GI/Abdominal exam: Present: soft, tenderness (generalized), normal bowel sounds. Absent: distended, guarding, rebound, rigid Neurological exam: Present: alert, oriented X3, CN II-XII intact Psychiatric exam: Present: normal affect, normal mood Skin exam: Present: warm, dry, intact, normal color. Absent: rash Course Vital Signs 11/05/19 18:02 Temperature 99.2 F Pulse Rate 105 H Respiratory 18 Rate Blood Pressure 119/76 O2 Sat by Pulse 96 Oximetry - Reevaluation(s) Reevaluation #1: 11/05/19 20:38 Patient's friend came to be with her in the ED. He comes out and reported that patient took a bunch of benadryl. When I spoke to her she did admit to taking 8- 12 benadryl. States she did have thoughts of suicide at the time. States that she has had a lot of in her life lately. She has had three family members and two friends pass away within the last month. States that it was all becoming overwhelming. States she had a panic attack and took the medication. Patient is tearful. She will be evaluated by EPS. Medical Decision Making - Medical Decision Making 24-year-old female patient presents to the emergency department today for evaluation of nausea, vomiting, diarrhea. Physical examination did reveal some mild abdominal tenderness, generalized. Labs reviewed and are relatively unremarkable. She did request coronavirus testing, we did send this down. While here patient's friend presented and did report that she had taken Benadryl earlier today as an overdose. I did question the patient, she did admit to taking 8-12 Benadryl and did attempt to kill herself. States she has been depressed dealing with bullying as well as multiple deaths in her family. She was cleared medically and evaluated by EPS. She will be admitted to the mental health unit. - Lab Data Result diagrams: 11/05/19 19:07 11/05/19 19:07 Lab Results 11/05/19 11/05/19 11/05/19 Range/Units 19:07 19:07 19:07 WBC 6.4 (3.8-10.6) k/uL RBC 5.03 (3.80-5.40) m/uL Hgb 14.0 (11.4-16.0) gm/dL Hct 43.4 (34.0-46.0) % MCV 86.1 (80.0-100.0) fL MCH 27.9 (25.0-35.0) pg MCHC 32.4 (31.0-37.0) g/dL RDW 13.4 (11.5-15.5) % Plt Count 324 (150-450) k/uL Neutrophils % 66 % Lymphocytes % 26 % Monocytes % 6 % Eosinophils % 1 % Basophils % 0 % Neutrophils # 4.3 (1.3-7.7) k/uL Lymphocytes # 1.7 (1.0-4.8) k/uL Monocytes # 0.4 (0-1.0) k/uL Eosinophils # 0.1 (0-0.7) k/uL Basophils # 0.0 (0-0.2) k/uL Sodium 139 (137-145) mmol/L Potassium 4.1 (3.5-5.1) mmol/L Chloride 109 H (98-107) mmol/L Carbon Dioxide 21 L (22-30) mmol/L Anion Gap 9 mmol/L BUN 10 (7-17) mg/dL Creatinine 0.64 (0.52-1.04) mg/dL Est GFR (CKD-EPI)AfAm >90 (>60 ml/min/1.73 sqM) Est GFR (CKD-EPI)NonAf >90 (>60 ml/min/1.73 sqM) Glucose 80 (74-99) mg/dL Calcium 9.7 (8.4-10.2) mg/dL Total Bilirubin 0.3 (0.2-1.3) mg/dL AST 18 (14-36) U/L ALT 10 (4-34) U/L Alkaline Phosphatase 64 (38-126) U/L Total Protein 7.0 (6.3-8.2) g/dL Albumin 4.3 (3.5-5.0) g/dL Lipase 42 (23-300) U/L Urine Color Light Yellow Urine Appearance Clear (Clear) Urine pH 6.5 (5.0-8.0) Ur Specific Cope 1.004 (1.001-1.035) Urine Protein Negative (Negative) Urine Glucose (UA) Negative (Negative) Urine Ketones Negative (Negative) Urine Blood Negative (Negative) Urine Nitrite Negative (Negative) Urine Bilirubin Negative (Negative) Urine Urobilinogen <2.0 (<2.0) mg/dL Ur Leukocyte Esterase Negative (Negative) Urine HCG, Qual (Not Detectd) Urine Opiates Screen (NotDetected) Ur Oxycodone Screen (NotDetected) Urine Methadone Screen (NotDetected) Ur Propoxyphene Screen (NotDetected) Ur Barbiturates Screen (NotDetected) U Tricyclic Antidepress (NotDetected) Ur Phencyclidine Scrn (NotDetected) Ur Amphetamines Screen (NotDetected) U Methamphetamines Scrn (NotDetected) U Benzodiazepines Scrn (NotDetected) Urine Cocaine Screen (NotDetected) U Marijuana (THC) Screen (NotDetected) 11/05/19 11/05/19 Range/Units 19:07 19:17 WBC (3.8-10.6) k/uL RBC (3.80-5.40) m/uL Hgb (11.4-16.0) gm/dL Hct (34.0-46.0) % MCV (80.0-100.0) fL MCH (25.0-35.0) pg MCHC (31.0-37.0) g/dL RDW (11.5-15.5) % Plt Count (150-450) k/uL Neutrophils % % Lymphocytes % % Monocytes % % Eosinophils % % Basophils % % Neutrophils # (1.3-7.7) k/uL Lymphocytes # (1.0-4.8) k/uL Monocytes # (0-1.0) k/uL Eosinophils # (0-0.7) k/uL Basophils # (0-0.2) k/uL Sodium (137-145) mmol/L Potassium (3.5-5.1) mmol/L Chloride (98-107) mmol/L Carbon Dioxide (22-30) mmol/L Anion Gap mmol/L BUN (7-17) mg/dL Creatinine (0.52-1.04) mg/dL Est GFR (CKD-EPI)AfAm (>60 ml/min/1.73 sqM) Est GFR (CKD-EPI)NonAf (>60 ml/min/1.73 sqM) Glucose (74-99) mg/dL Calcium (8.4-10.2) mg/dL Total Bilirubin (0.2-1.3) mg/dL AST (14-36) U/L ALT (4-34) U/L Alkaline Phosphatase (38-126) U/L Total Protein (6.3-8.2) g/dL Albumin (3.5-5.0) g/dL Lipase (23-300) U/L Urine Color Urine Appearance (Clear) Urine pH (5.0-8.0) Ur Specific Cope (1.001-1.035) Urine Protein (Negative) Urine Glucose (UA) (Negative) Urine Ketones (Negative) Urine Blood (Negative) Urine Nitrite (Negative) Urine Bilirubin (Negative) Urine Urobilinogen (<2.0) mg/dL Ur Leukocyte Esterase (Negative) Urine HCG, Qual Not Detected (Not Detectd) Urine Opiates Screen Not Detected (NotDetected) Ur Oxycodone Screen Not Detected (NotDetected) Urine Methadone Screen Not Detected (NotDetected) Ur Propoxyphene Screen Not Detected (NotDetected) Ur Barbiturates Screen Not Detected (NotDetected) U Tricyclic Antidepress Not Detected (NotDetected) Ur Phencyclidine Scrn Not Detected (NotDetected) Ur Amphetamines Screen Not Detected (NotDetected) U Methamphetamines Scrn Not Detected (NotDetected) U Benzodiazepines Scrn Not Detected (NotDetected) Urine Cocaine Screen Not Detected (NotDetected) U Marijuana (THC) Screen Detected H (NotDetected) Disposition Clinical Impression: Vomiting, Diarrhea, Suicidal ideation Disposition: ADMITTED IP TO THIS [facility] Condition: Serious Referrals: None,Stated [Primary Care Provider] - 1-2 days Decision to Admit Reason: Admit from EC Decision Date: 11/05/19 Decision Time: 20:55
[2019-11-05 19:22] LABS: Basophils % (A) 0 %; Eosinophils # (A) 0.1 k/uL (0-0.7); Eosinophils % (A) 1 %; HCT 43.4 % (34.0-46.0); Lymphocytes # (A) 1.7 k/uL (1.0-4.8); Lymphocytes % (A) 26 %; MCH 27.9 pg (25.0-35.0); MCHC 32.4 g/dL (31.0-37.0); MCV 86.1 fL (80.0-100.0); Mean Platelet Volume 7.4; Monocytes # (A) 0.4 k/uL (0-1.0); Monocytes % (A) 6 %; Neutrophils # (A) 4.3 k/uL (1.3-7.7); Neutrophils % (A) 66 %; Platelet Count 324 k/uL (150-450); RBC 5.03 m/uL (3.80-5.40); RDW 13.4 % (11.5-15.5); WBC 6.4 k/uL (3.8-10.6)
[2019-11-05 19:24] LABS: Appearance,Urine Clear (Clear); Bilirubin,Urine Negative (Negative); Blood,Urine Negative (Negative); Color,Urine Light Yellow; Glucose,Urine (UA) Negative (Negative); Ketones,Urine Negative (Negative); Leukocyte Esterase,Urine Negative (Negative); Nitrite,Urine Negative (Negative); PH, Urine 6.5 (5.0-8.0); Protein,Urine Negative (Negative); Specific Gravity,Urine 1.004 (1.001-1.035); Urobilinogen,Urine <2.0 mg/dL (<2.0)
[2019-11-05 19:34] LABS: ALT 10 U/L (4-34); AST 18 U/L (14-36); African American GFR (CKD) >90 (>60 ml/min/1.73 sqM); Albumin 4.3 g/dL (3.5-5.0); Alkaline Phosphatase 64 U/L (38-126); Anion Gap 9 mmol/L; Blood Urea Nitrogen 10 mg/dL (7-17); Calcium 9.7 mg/dL (8.4-10.2); Carbon Dioxide 21 mmol/L (22-30); Chloride 109 mmol/L (98-107); Glucose 80 mg/dL (74-99); Non-African American GFR(CKD) >90 (>60 ml/min/1.73 sqM); Potassium 4.1 mmol/L (3.5-5.1); Sodium 139 mmol/L (137-145); Total Bilirubin 0.3 mg/dL (0.2-1.3)
[2019-11-05 20:27] LABS: Amphetamine Screen,Urine Not Detected (NotDetected); Barbiturate Screen,Urine Not Detected (NotDetected); Benzodiazepines Screen,Urine Not Detected (NotDetected); Cocaine Screen,Urine Not Detected (NotDetected); Methadone Screen, Urine Not Detected (NotDetected); Opiate Screen,Urine Not Detected (NotDetected); Oxycodone Screen, Urine Not Detected (NotDetected); Phencyclidine Screen,Urine Not Detected (NotDetected); Tricyclic Antidepressant,Urine Not Detected (NotDetected); Urn Cannabinoid Scrn Detected (NotDetected)
[2019-11-05] MEDS ORDERED: ZIPRASIDONE 20 MG VIAL IM PRN (21:46)
[2019-11-05] MEDS ORDERED: ACETAMINOPHEN TAB 325 MG TAB PO PRN (21:46)
[2019-11-05] MEDS ORDERED: MAG HYDROX/AL HYDROX/SIMETH 30 ML CUP PO PRN (21:46)
[2019-11-05] MEDS ORDERED: LORazepam 1 MG TAB PO PRN (21:46)
[2019-11-05] MEDS ORDERED: MAGNESIUM HYDROXIDE 2,400 MG/10 ML CUP PO PRN (21:46)
[2019-11-06] MEDS ORDERED: ONDANSETRON ODT 4 MG TAB PO PRN (00:43)
[2019-11-06] MEDS ORDERED: IPRATROPIUM-ALBUTEROL 3 ML NEB INHALATION PRN (00:46)
[2019-11-06] MEDS ORDERED: ALBUTEROL HFA INHALER INHALATION PRN (00:51)
--- NOTE | 2019-11-06 00:52 | P.MDCNMH ---
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 she denies any travel or contact with known COVID 19 patients. she denies any SOB, chest pain , trouble breathing, sore throat, cough, or URI. she reports in addition to above symptoms , generalized abd cramps and diarrhea. she currently feeling better, and declines any medications she also admits to feeling depressed , and have taken more than 10 pillsof benadryl 25 mg in a suicide attempt . she admits to periodic suicidal ideation Review of Systems Pertinent positives as noted in HPI. All other systems were reviewed and are negative Past Medical History Past Medical History: Asthma Additional Past Medical History / Comment(s): barthalon cysts History of Any Multi-Drug Resistant Organisms: None Reported Past Surgical History: Orthopedic Surgery Additional Past Surgical History / Comment(s): D&C, left foot sx Past Anesthesia/Blood Transfusion Reactions: No Reported Reaction Past Psychological History: Anxiety, Depression Smoking Status: Current some day smoker Past Alcohol Use History: Occasional Past Drug Use History: Marijuana Medications and Allergies Home Medications Medication Instructions Recorded Confirmed Type No Known Home Medications 11/05/19 11/05/19 History Allergies Allergy/AdvReac Type Severity Reaction Status Date / Time latex Allergy Rash/Hives Verified 11/05/19 20:16 red dye Allergy Anaphylaxis Verified 11/05/19 20:16 venom-honey bee Allergy Anaphylaxis Verified 11/05/19 20:16 Physical Exam Vitals: Vital Signs Temp Pulse Pulse Resp BP BP Pulse Ox 11/05/19 22:08 97.7 F 99 14 119/68 99 11/05/19 21:47 97.9 F 57 L 16 117/71 100 11/05/19 20:30 98.0 F 71 16 118/71 99 11/05/19 18:02 99.2 F 105 H 18 119/76 96 Intake and Output 11/05/19 11/05/19 11/06/19 14:59 22:59 06:59 Other: Weight 76.204 kg Constitutional: No acute distress, conversant, pleasant Eyes: Anicteric sclerae, moist conjunctiva, Pupils equal round reactive to light ENMT: NC/AT Oropharynx clear, no erythema, or exudates Neck: Supple, FROM, no masses, or JVD No carotid bruits No thyromegaly Lungs: Clear to auscultation Clear to percussion Normal respiratory effort, no accessory muscle use Cardiovascular: Heart regular in rate and rhythm, No murmurs, gallops, or rubs No peripheral edema Abdominal: Soft diffuse mild discomfort to deep palpation , no guarding, rebound or rigidity Abdomen moving with respiration Normoactive bowel sounds No hepatomegaly, No splenomegaly No palpable mass No abdominal wall hernia noted Skin: Normal temperature, tone, texture, turgor No induration No subcutaneous nodules No rash, lesions No ulcers Extremities: No digital cyanosis No clubbing Pedal pulses intact and symmetrical Radial pulses intact and symmetrical No calf tenderness Psychiatric: Alert and oriented to person, place and time depressed affect poor judgement Neuro Muscles Strength 5/5 in all 4 extremities Sensation to light touch grossly present throughout Cranial nerves II-XII grossly intact No focal sensory deficits Lymphatics: no palpable cervical or supraclavicular , or inguinal lymph nodes Cranial Nerve Examination - Cranial Nerves Cranial Nerve II- Optic: Intact Cranial Nerve III- Oculomotor: Intact Cranial Nerve IV- Trochlear: Intact Cranial Nerve V- Trigeminal: Intact Cranial Nerve - Abducens: Intact Cranial Nerve VII- Facial: Intact Cranial Nerve VIII- Auditory: Intact Cranial Nerve IX- Glossopharyngeal: Intact Cranial Nerve X- Vagus: Intact Cranial Nerve XI- Accessory: Intact Cranial Nerve XII- Hypoglossal: Intact Results CBC & Chem 7: 11/05/19 19:07 11/05/19 19:07 Labs: Abnormal Lab Results - Last 24 Hours (Table) 11/05/19 11/05/19 Range/Units 19:07 19:17 Chloride 109 H (98-107) mmol/L Carbon Dioxide 21 L (22-30) mmol/L U Marijuana (THC) Screen Detected H (NotDetected) Assessment and Plan Assessment: acute gastroenteritis symptomatic control follow up COVID 19 testing isolation for contact and droplet suicide ideation depression management per psych if patient does not tolerate PO intake tomorrow , please contact sound physician for reevaluation PPI bid zofran prn BHCG negative mild persistent asthma PRN duoneb Thank you for allowing us to participate in the care of this patient. We will follow peripherally. Do not hesitate to contact us with questions. Someone can be reached from the [facility] hospitalist group at all hours of the day at [phone].
[2019-11-06] MEDS: PANTOPRAZOLE 40 MG TABLET PO SCH ×3 (03:27→18:52)
[2019-11-06 08:15] LABS: Basophils % (A) 0 %; Eosinophils % (A) 1 %; HCT 41.9 % (34.0-46.0); Lymphocytes # (A) 1.9 k/uL (1.0-4.8); Lymphocytes % (A) 34 %; MCV 87.2 fL (80.0-100.0); Mean Platelet Volume 7.3; Monocytes # (A) 0.4 k/uL (0-1.0); Monocytes % (A) 7 %; Neutrophils # (A) 3.2 k/uL (1.3-7.7); Neutrophils % (A) 56 %; Platelet Count 269 k/uL (150-450); RBC 4.81 m/uL (3.80-5.40); RDW 13.6 % (11.5-15.5); WBC 5.7 k/uL (3.8-10.6)
[2019-11-06 08:28] LABS: ALT 9 U/L (4-34); AST 16 U/L (14-36); African American GFR (CKD) >90 (>60 ml/min/1.73 sqM); Albumin 3.6 g/dL (3.5-5.0); Alkaline Phosphatase 63 U/L (38-126); Anion Gap 4 mmol/L; Blood Urea Nitrogen 9 mg/dL (7-17); Calcium 9.1 mg/dL (8.4-10.2); Carbon Dioxide 23 mmol/L (22-30); Chloride 111 mmol/L (98-107); Cholesterol 155 mg/dL (<200); Glucose 90 mg/dL (74-99); HDL Cholesterol 44 mg/dL (40-60); LDL Cholesterol,Calculated 89 mg/dL (0-99); Non-African American GFR(CKD) >90 (>60 ml/min/1.73 sqM); Potassium 4.2 mmol/L (3.5-5.1); Sodium 138 mmol/L (137-145); Total Bilirubin 0.5 mg/dL (0.2-1.3); Total Protein 6.2 g/dL (6.3-8.2); Triglycerides 110 mg/dL (<150)
[2019-11-06] MEDS: NICOTINE 14MG/24HR PATCH TRANSDERM SCH (09:39)
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
[2019-11-07] MEDS: SERTRALINE 50 MG TAB PO SCH (09:13)
[2019-11-07] MEDS: PANTOPRAZOLE 40 MG TABLET PO SCH ×2 (09:13→17:18)
[2019-11-07] MEDS: NICOTINE 14MG/24HR PATCH TRANSDERM SCH (09:21)
[2019-11-07 10:39] LABS: Hemoglobin A1C 5.6 % (4.0-6.0)
--- NOTE | 2019-11-07 13:53 | P.PN ---
Progress Note - Text Progress Note Date: 11/07/19 Interval History: Patient was seen laying down in her bed as she has been confined to her room due to rule out of covid-19 test and patient was directable and agreeable to speak with commercial underwriter. Patient appeared to be alert and was cooperative during interview. She states that she "did something stupid" and claims that she overdosed on her medications. She admitted to being a suicide attempt however claims that she walked to the hospital afterwards. She states that she is "going through a lot" lately and spoke about the various stressors in her life from work and also with her boyfriend. She states that her mood is "about the same" and endorsed ongoing depression and anxiety. She states that she does have a history of panic attacks. She claims that she has been having poor sleep at night. She states that she has a fair appetite. At this time patient denies any suicidal or homical ideations, intent or plan. Patient denies any auditory, visual hallucinations and denies any paranoia or delusions. Patient denies any side effects from the medications and has been compliant with meds. Mental Status Exam: General Appearance: Patient appears to be stated age is alert, directable, and cooperative. Wearing hospital gown and laying in bed. Behavior: Patient is calmly laying in bed without any agitated behavior. Attempts to cooperate. Speech: Patient's speech is fluent and nonpressured. Soft tone. Mood/Affect: Mood is "about the same", affect is congruent and constricted. Suicidality/Homicidality: Patient denies having any suicidal or homicidal ideation intent or plan. Perceptions: Patient denies any visual hallucinations and denies any auditory hallucinations Though content/process: There is no evidence of any delusional thought content and thought process is linear and goal-directed. [place]. Memory and concentration: AOX3, grossly intact for the purposes of this session Judgment and insight: Improving mildly Assessment Major depressive disorder, without psychotic features Anxiety disorder unspecified, rule out panic disorder Alcohol use disorder mild Cannabis use disorder Nicotine dependence Plan: -Patient continues to meet criteria for inpatient psychiatric admission for symptom stabilization and safety. Patient has signed adult voluntary form and medication consent and was placed in patient's chart. -Medications: Continue with Zoloft 50 mg daily for mood/anxiety with plan to titrate up as needed, we'll start BuSpar 7.5 mg twice a day for anxiety. Will start melatonin 5 mg daily at bedtime for insomnia. -When necessary Ativan and Geodon for agitation/aggression. -Patient will remain in isolation in her room until COVID-19 comes back neg ative. -NRT - nicotine patch -SW on board for discharge planning. Encouraged the patient to participate in milieu. Likely discharge in 2-3 days.
[2019-11-07] MEDS: busPIRone HCl 5 MG TAB PO SCH ×2 (14:05→21:28)
[2019-11-07] MEDS: MELATONIN 5 MG TABLET PO SCH (21:28)
--- NOTE | 2019-11-08 08:57 | P.PN ---
Progress Note - Text Progress Note Date: 11/08/19 Interval History: Patient was seen laying down in her bed as she has been confined to her room due to rule out of covid-19 test and patient was directable and agreeable to speak with director underwriter sales. Patient was in the middle of reading her book this morning. She states that she is feeling bored in her room and claims that she has read 2 books already. She states that she feels some guilt about what she has done and states that "I'm normally not a suicidal person". She continues to state that she has regrets and also states that she spoke to her boyfriend and her boss over the phone. She spoke about her assisted residents as one has recently. She claims that her mood has been mildly improving along with her anxiety however claims that "it's too early to tell". She states that she was able to sleep better last night with the melatonin. She states that she has a fair appetite. At this time patient denies any suicidal or homical ideations, intent or plan. Patient denies any auditory, visual hallucinations and denies any paranoia or delusions. Patient denies any side effects from the medications and has been compliant with meds. Mental Status Exam: General Appearance: Patient appears to be stated age is alert, directable, and cooperative. Wearing hospital gown and laying in bed. Behavior: Patient is calmly laying in bed without any agitated behavior. Attempts to be cooperate. Speech: Patient's speech is fluent and nonpressured. Soft tone. Mood/Affect: Mood is "too early to tell" and has anxiety, affect is congruent Suicidality/Homicidality: Patient denies having any suicidal or homicidal ideation intent or plan. Perceptions: Patient denies any visual hallucinations and denies any auditory hallucinations Though content/process: There is no evidence of any delusional thought content and thought process is linear and goal-directed. Memory and concentration: AOX3, grossly intact for the purposes of this session Judgment and insight: Improving mildly Assessment Major depressive disorder, without psychotic features Anxiety disorder unspecified, rule out panic disorder Alcohol use disorder mild Cannabis use disorder Nicotine dependence Plan: -Patient continues to meet criteria for inpatient psychiatric admission for symptom stabilization and safety. Patient has signed adult voluntary form and medication consent and was placed in patient's chart. -Medications: Continue with Zoloft 50 mg daily for mood/anxiety, continue with BuSpar 7.5 mg twice a day for anxiety. Continue with melatonin 5 mg daily at bedtime for insomnia. -When necessary Ativan and Geodon for agitation/aggression. -Patient will remain in isolation in her room until COVID-19 comes back negative. Currently pending. -NRT - nicotine patch -SW on board for discharge planning. Encouraged the patient to participate in milieu. Likely discharge in 1-2 days.
[2019-11-08] MEDS: busPIRone HCl 5 MG TAB PO SCH ×2 (09:25→20:24)
[2019-11-08] MEDS: PANTOPRAZOLE 40 MG TABLET PO SCH ×2 (09:26→17:55)
[2019-11-08] MEDS: SERTRALINE 50 MG TAB PO SCH (09:26)
[2019-11-08] MEDS: NICOTINE 14MG/24HR PATCH TRANSDERM SCH (09:54)
[2019-11-08 14:29] VITALS: BMI 28.8
[2019-11-08] MEDS: MELATONIN 5 MG TABLET PO SCH (20:24)
[2019-11-09 06:52] VITALS: RESP 14
[2019-11-09] MEDS ORDERED: SERTRALINE 50 MG TAB PO STA ×2 (09:25→09:34)
[2019-11-09] MEDS: PANTOPRAZOLE 40 MG TABLET PO SCH ×2 (09:33→21:25)
[2019-11-09] MEDS: NICOTINE 14MG/24HR PATCH TRANSDERM SCH (09:33)
[2019-11-09] MEDS: busPIRone HCl 5 MG TAB PO SCH ×2 (09:33→21:24)
[2019-11-09] MEDS: SERTRALINE 50 MG TAB PO SCH (09:36)
--- NOTE | 2019-11-09 09:42 | P.PN ---
Progress Note - Text Progress Note Date: 11/09/19 Interval History: Patient was seen laying down in her bed morning and was directable and agreeable to speak with financial underwriter in the office. Patient continues to appear to have a constricted affect however appear to be more directable today. She states that her mood has been "improving a little bit" and states that she is continuing to feel overwhelmed. She states that she is continuing to have some anxiety however feels that her improving. She spoke about feeling guilt about what she has done. She also states that she spoke with her boyfriend over the phone who is now moving out of her house as she states "I think that is better for me to be single right now". She claims that she does well being single and felt that her boyfriend has "his own issues to deal with". She claims that she has been trying to go to groups and participate as best she can. She states that she slept better last night. She states that she has a fair appetite. At this time patient denies any suicidal or homical ideations, intent or plan. Patient denies any auditory, visual hallucinations and denies any paranoia or delusions. Patient denies any side effects from the medications and has been compliant with meds. Mental Status Exam: General Appearance: Patient appears to be stated age is alert, directable, and cooperative. Wearing street clothing. Hygiene and grooming improving mildly. Behavior: Patient is calmly laying in bed without any agitated behavior. Cooperative Speech: Patient's speech is fluent and nonpressured. Soft tone. Mood/Affect: Mood is "a bit better", affect is congruent and constricted Suicidality/Homicidality: Patient denies having any suicidal or homicidal ideat ion intent or plan. Perceptions: Patient denies any visual hallucinations and denies any auditory hallucinations Though content/process: There is no evidence of any delusional thought content and thought process is linear and goal-directed. Memory and concentration: AOX3, grossly intact for the purposes of this session Judgment and insight: Improving mildly Assessment Major depressive disorder, without psychotic features Anxiety disorder unspecified, rule out panic disorder Alcohol use disorder mild Cannabis use disorder Nicotine dependence Plan: -Patient continues to meet criteria for inpatient psychiatric admission for symptom stabilization and safety. Patient has signed adult voluntary form and medication consent and was placed in patient's chart. -Medications: Increased Zoloft 100 mg daily for mood/anxiety, continue with BuSpar 7.5 mg twice a day for anxiety. Continue with melatonin 5 mg daily at bedtime for insomnia. -When necessary Ativan and Geodon for agitation/aggression. -COVID-19 - negative -NRT - nicotine patch -SW on board for discharge planning. Encouraged the patient to participate in milieu. Likely discharge tomorrow back home. call worker person to call for renee martin and to ensure safety upon discharge with patient's family.
[2019-11-09] MEDS: MELATONIN 5 MG TABLET PO SCH (21:24)
[2019-11-10 06:04] VITALS: BP 118/62; PULSE 77; TEMP 99.5
[2019-11-10] MEDS: PANTOPRAZOLE 40 MG TABLET PO SCH (08:31)
[2019-11-10] MEDS: busPIRone HCl 5 MG TAB PO SCH (08:31)
[2019-11-10] MEDS: NICOTINE 14MG/24HR PATCH TRANSDERM SCH (08:31)
[2019-11-10] MEDS ORDERED: SERTRALINE 100 MG TAB PO SCH (09:00)
--- NOTE | 2019-11-10 09:12 | P.DS ---
Providers Date of admission: 11/05/19 21:42 Expected date of discharge: 11/10/19 Attending physician: Mateus Bond MD Consults: 11/05/19 21:46 Consult Physician Routine Consulting Provider: [facility] Consult Reason/Comments: medical management Do you want consulting provider notified?: Yes, Notify in am Primary care physician: Stated None - Discharge Diagnosis(es) (1) Major depressive disorder without psychotic features Current Visit: Yes Status: Acute Priority: High (2) Anxiety disorder Current Visit: Yes Status: Acute Priority: Medium (3) Cannabis use disorder, mild, abuse Current Visit: Yes Status: Acute Priority: Low (4) Nicotine dependence Current Visit: Yes Status: Acute Priority: Low Hospital Course: Admission HPI: Admission was completed by Dr. Watkins "She is a 24-year-old single - [place] female admitted to psychiatric unit voluntarily with complaints of increasing depression, anxiety and suicidal ideation. Her brother brought her to the after she took 10 25 mg Benadryl in apparent suicide attempt. She minimized her action and alleged that she was taking the Benadryl because she was having a panic attack. She denied that she took the Benadryl in a suicide attempt. She was focused on anxiety and panic attack. She complained of persistent anxiety that at times increase in intensity to the point where she feels that she overwhelmed. During these periods she described a sense that the avila are closing in on her. She becomes short of breath, lightheaded, develops chest pain, feels dizzy and feels detached from her self. These episodes last anywhere between "minutes" to "an hour". She denied that they occur "out of the blue" and are always related to a distressing event. She recently experienced increased panic attacks after an incident where another coworker accused her of negligence. 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 Her coworker accused her of negligence behavior in the of the resident. She stated the stranding supervisor reviewed the case and confirmed that she had acted properly. She received no disciplinary action and remains employed. She is also experiencing increasing depression that fluctuates in intensity. She has thoughts of suicide that occur "intermittently" but are not persistent. She denied history of suicide attempts or gestures. In retrospect, she feels she's been struggling with depression and anxiety since she was 13 or 14 years old. She attributes both these symptoms to multiple stressors including difficulty in social situations, the of her fianc, of her 2-month-old child and recent issues at work. She has never met with a mental health professional complaining that her mother never believed in mental health problems. She drinks alcohol intermittently although she described a history of heavy alcohol use when she was in her teens. She smokes marijuana on a daily basis. She denied periods of elevated mood or sustained irritability suggestive of sowmya or hypomania. She denied experiencing psychotic symptoms such as auditory, visual or olfactory hallucinations, ideas reference, thought insertion, thought broadcasting or thought control." Hospital course: Upon admission to the unit patient was initially depressed and anxious. Patient was however directable and agreeable to commence treatment. Patient was in a single room in quarantine and was tested for covid-19 due to fevers and patient's result came back negative and was released from quarantine. Patient got along well with other patients on the unit and followed unit protocol. Patient was compliant with the medications and denied any side effects throughout hospital course. Patient was started on Zoloft and titrated up to a dose of 100 mg daily for mood/anxiety, BuSpar 7.5 mg twice a day for anxiety and melatonin 5 mg nightly for insomnia. Patient spoke of her stressors and engaged in therapy both group and individual. Patient was also seen by medical team for history and physical exam. Throughout the course of the hospitalization patient gradually improved with regards to mood, anxiety, sleep and became future o riented with improved insight and judgment. On the day of discharge patient denied any suicidal or homicidal ideations intent or plan denied any auditory or visual hallucinations. Patient endorsed wanting to live for her future and her health. The patient denied any access to guns or weapons. Patient denied any paranoia and did not endorse any delusions. Patient does have a significant history of substance abuse and was counseled on abstaining from all substances including alcohol and marijuana. Patient wanted to cut back her substance use on her own. Patient was also counseled on the medications and need for regular compliance and was encouraged to follow-up with their outpatient appointment for mental health and also for primary care. Prior to discharge a family meeting will be arranged by social media sr strategy manager to answer any questions and ensure safety upon discharge. Mental status exam: General Appearance: Patient appears to be stated age is alert, pleasant, and cooperative. Patient is in no acute distress and has fair hygiene and grooming Behavior: Patient is calmly seated without any agitated behavior. More cooperative. Speech: Patient's speech is fluent and nonpressured. Mood/Affect: Patient reports their mood is "better", affect is congruent and euthymic. Suicidality/Homicidality: Patient denies having any suicidal or homicidal ideation intent or plan. Perceptions: Patient denies any auditory or visual hallucinations. Though content/process: There is no evidence of any delusional thought content and thought process is linear and goal-directed. more future oriented Memory and concentration: AOX3, grossly intact for the purposes of this session. Can spell "WORLD" backwards correctly. Judgment and insight: Improved with guarded prognosis Impression: Major depressive disorder, without psychotic features Anxiety disorder unspecified, rule out panic disorder Alcohol use disorder mild to Cannabis use disorder mild Nicotine dependence Plan: -Continue with discharge today as patient has improved and stabilized psychiatrically and is not currently an imminent threat to herself and/or others. -Continue medications: Zoloft 100 mg daily for mood/anxiety, BuSpar 7.5 mg twice a day for anxiety, melatonin 5 mg nightly when necessary for insomnia. -Patient was counseled on the need for medication compliance and appropriate follow-up at mental health and also primary care for medical issues. Patient verbalized understanding and agreed. -Social work to arrange for and conduct family meeting to ensure safety upon discharge and answer any questions/concerns. Social work also to arrange for patients follow up appointments for psychiatric care along with follow up with primary care provider. -Patient counseled on abstaining from recreational drugs and marijuana and alcohol. Was informed/educated on the adverse effects on their physical and mental health. Patient verbally agreed and understood. Patient wanted to cut back her substance use on her own. -Patient was instructed to return to the hospital or seek immediate medical care if their psychiatric or medical symptoms do worsen or reoccur. Allergies Allergy/AdvReac Type Severity Reaction Status Date / Time latex Allergy Rash/Hives Verified 11/05/19 20:16 red dye Allergy Anaphylaxis Verified 11/05/19 20:16 venom-honey bee Allergy Anaphylaxis Verified 11/05/19 20:16 Laboratory Results WBC 5.7 k/uL (3.8-10.6) 08/02/20 07:47 RBC 4.81 m/uL (3.80-5.40) 11/06/19 07:47 Hgb 13.0 gm/dL (11.4-16.0) 11/06/19 07:47 Hct 41.9 % (34.0-46.0) 11/06/19 07:47 MCV 87.2 fL (80.0-100.0) 11/06/19 07:47 MCH 27.0 pg (25.0-35.0) 11/06/19 07:47 MCHC 31.0 g/dL (31.0-37.0) 11/06/19 07:47 RDW 13.6 % (11.5-15.5) 11/06/19 07:47 Plt Count 269 k/uL (150-450) 11/06/19 07:47 Neutrophils % 56 % 11/06/19 07:47 Lymphocytes % 34 % 11/06/19 07:47 Monocytes % 7 % 11/06/19 07:47 Eosinophils % 1 % 11/06/19 07:47 Basophils % 0 % 11/06/19 07:47 Neutrophils # 3.2 k/uL (1.3-7.7) 11/06/19 07:47 Lymphocytes # 1.9 k/uL (1.0-4.8) 11/06/19 07:47 Monocytes # 0.4 k/uL (0-1.0) 11/06/19 07:47 Eosinophils # 0.0 k/uL (0-0.7) 11/06/19 07:47 Basophils # 0.0 k/uL (0-0.2) 11/06/19 07:47 Sodium 138 mmol/L (137-145) 11/06/19 07:47 Potassium 4.2 mmol/L (3.5-5.1) 11/06/19 07:47 Chloride 111 mmol/L (98-107) H 11/06/19 07:47 Carbon Dioxide 23 mmol/L (22-30) 11/06/19 07:47 Anion Gap 4 mmol/L 11/06/19 07:47 BUN 9 mg/dL (7-17) 11/06/19 07:47 Creatinine 0.66 mg/dL (0.52-1.04) 11/06/19 07:47 Est GFR (CKD-EPI)AfAm >90 (>60 ml/min/1.73 sqM) 11/06/19 07:47 Est GFR (CKD-EPI)NonAf >90 (>60 ml/min/1.73 sqM) 11/06/19 07:47 Glucose 90 mg/dL (74-99) 11/06/19 07:[address] Glu mg/dL 114 11/06/19 07:47 Hemoglobin A1c 5.6 % (4.0-6.0) 11/06/19 07:47 Calcium 9.1 mg/dL (8.4-10.2) 11/06/19 07:47 Total Bilirubin 0.5 mg/dL (0.2-1.3) 11/06/19 07:47 AST 16 U/L (14-36) 11/06/19 07:47 ALT 9 U/L (4-34) 11/06/19 07:47 Alkaline Phosphatase 63 U/L (38-126) 11/06/19 07:47 Total Protein 6.2 g/dL (6.3-8.2) L 11/06/19 07:47 Albumin 3.6 g/dL (3.5-5.0) 11/06/19 07:47 Triglycerides 110 mg/dL (<150) 11/06/19 07:47 Cholesterol 155 mg/dL (<200) 11/06/19 07:47 LDL Cholesterol, Calc 89 mg/dL (0-99) 11/06/19 07:47 HDL Cholesterol 44 mg/dL (40-60) 11/06/19 07:47 Lipase 42 U/L (23-300) 11/05/19 19:07 TSH 1.180 mIU/L (0.465-4.680) 11/06/19 07:47 Urine Color Light Yellow 11/05/19 19:07 Urine Appearance Clear (Clear) 11/05/19 19:07 Urine pH 6.5 (5.0-8.0) 11/05/19 19:07 Ur Specific [place] 1.004 (1.001-1.035) 11/05/19 19:07 Urine Protein Negative (Negative) 11/05/19 19:07 Urine Glucose (UA) Negative (Negative) 11/05/19 19:07 Urine Ketones Negative (Negative) 11/05/19 19:07 Urine Blood Negative (Negative) 11/05/19 19:07 Urine Nitrite Negative (Negative) 11/05/19 19:07 Urine Bilirubin Negative (Negative) 11/05/19 19:07 Urine Urobilinogen <2.0 mg/dL (<2.0) 11/05/19 19:07 Ur Leukocyte Esterase Negative (Negative) 11/05/19 19:07 Urine HCG, Qual Not Detected (Not Detectd) 11/05/19 19:07 Urine Opiates Screen Not Detected (NotDetected) 11/05/19 19:17 Ur Oxycodone Screen Not Detected (NotDetected) 11/05/19 19:17 Urine Methadone Screen Not Detected (NotDetected) 11/05/19 19:17 Ur Propoxyphene Screen Not Detected (NotDetected) 11/05/19 19:17 Ur Barbiturates Screen Not Detected (NotDetected) 11/05/19 19:17 U Tricyclic Antidepress Not Detected (NotDetected) 11/05/19 19:17 Ur Phencyclidine Scrn Not Detected (NotDetected) 11/05/19 19:17 Ur Amphetamines Screen Not Detected (NotDetected) 11/05/19 19:17 U Methamphetamines Scrn Not Detected (NotDetected) 11/05/19 19:17 U Benzodiazepines Scrn Not Detected (NotDetected) 11/05/19 19:17 Urine Cocaine Screen Not Detected (NotDetected) 11/05/19 19:17 U Marijuana (THC) Screen Detected (NotDetected) H 11/05/19 19:17 Coronavirus (PCR) Not Detected (Not Detected) 11/05/19 20:20 Vital Signs Temp 99.5 F 11/10/19 06:03 Pulse 77 11/10/19 06:03 Resp 14 11/10/19 06:03 BP 118/62 11/10/19 06:03 Pulse Ox 98 11/10/19 06:03 Patient Condition at Discharge: Stable Plan - Discharge Summary New Discharge Prescriptions: New busPIRone HCL [Buspar] 7.5 mg PO BID 30 Days tab Nicotine 14Mg/24Hr Patch [Habitrol] 1 patch TRANSDERM DAILY 14 Days patch Melatonin 5 mg PO HS PRN 30 Days tablet PRN Reason: Insomnia Pantoprazole [Protonix] 40 mg PO AC-BID 30 Days tablet. Acetaminophen Tab [Tylenol] 650 mg PO Q4HR PRN tab PRN Reason: Pain/Discomfort Albuterol Inhaler [Ventolin Hfa Inhaler] 2 puff INHALATION RT-QID PRN #1 puff PRN Reason: Shortness Of Breath Or Wheezing Sertraline [Zoloft] 100 mg PO DAILY 30 Days tab Discharge Medication List Acetaminophen Tab [Tylenol] 650 mg PO Q4HR PRN tab 11/10/19 [Rx] Albuterol Inhaler [Ventolin Hfa Inhaler] 2 puff INHALATION RT-QID PRN #1 puff 11/10/19 [Rx] Melatonin 5 mg PO HS PRN 30 Days tablet 11/10/19 [Rx] Nicotine 14Mg/24Hr Patch [Habitrol] 1 patch TRANSDERM DAILY 14 Days patch 11/10/19 [Rx] Pantoprazole [Protonix] 40 mg PO AC-BID 30 Days tablet. 11/10/19 [Rx] Sertraline [Zoloft] 100 mg PO DAILY 30 Days tab 11/10/19 [Rx] busPIRone HCL [Buspar] 7.5 mg PO BID 30 Days tab 11/10/19 [Rx] Follow up Appointment(s)/Referral(s): Psychiatric [Outside] - 11/14/19 2:00 pm (with Saumya via phone ) None,Stated [Primary Care Provider] - 1-2 days Activity/Diet/Wound Care/Special Instructions: Activity and diet as tolerated. Avoid the use of street drugs and alcohol. Take all medications as prescribed. When you are in need of refills on your medications please contact your medical provider and/or outpatient psychiatrist to have this done. Please go to scheduled outpatient appointment for aftercare treatment. If symptoms return or become worse, call the crisis line at [phone] and/or go to the nearest emergency room for evaluation. Discharge Disposition: HOME SELF-CARE
== END 2019-11-10 11:35 | disposition home or self-care (01) | DRG 885 ==
LOC: EC 17:39 → 3MHU 21:42
PROVIDERS: ADMIT Psychiatry & Neurology Psychiatry; ATTEND Psychiatry & Neurology Psychiatry
DX: F32.1 Major depressive disorder, single episode, moderate (principal); R45.851 Suicidal ideations; Z11.59 Encounter for screening for other viral diseases; F41.0 Panic disorder [episodic paroxysmal anxiety]; J45.909 Unspecified asthma, uncomplicated; F17.200 Nicotine dependence, unspecified, uncomplicated; G89.29 Other chronic pain; F10.10 Alcohol abuse, uncomplicated; F12.10 Cannabis abuse, uncomplicated; G47.00 Insomnia, unspecified; Z98.890 Other specified postprocedural states; Z87.2 Personal history of diseases of the skin and subcutaneous tissue; Z87.828 Personal history of other (healed) physical injury and trauma; Z91.030 Bee allergy status; Z91.02 Food additives allergy status; Z91.040 Latex allergy status; Z81.1 Family history of alcohol abuse and dependence
CPT/HCPCS: 36415; 80053; 80061; 80306; 81003; 81025; 82075; 83036; 83690; 84443; 85025; 96361; 96374; 96375; 99285

== ENCOUNTER 2020-06-24 23:09 | Emergency (ER) | payer OTHER ==
[2020-06-24 23:15] VITALS: BP 143/88; PULSE 99; RESP 20; TEMP 98
--- NOTE | 2020-06-24 23:27 | ED ---
Syncope HPI - General Chief Complaint: Syncope Stated Complaint: Head Injury Time Seen by Provider: 06/24/20 23:18 Source: patient, RN notes reviewed, old records reviewed Mode of arrival: wheelchair Limitations: no limitations - History of Present Illness Initial Comments: This is a 25 female to the ED who complains of severe anxiety after breaking up with her boyfriend. Patient has syncopal event on the parking lot. Patient has had a history of syncope before. Patient does feel lightheaded and dizzy does complain of headache after hitting her head. Otherwise patient has no chest pain abdominal pain. MD Complaint: loss of consciousness -: days(s) Prodromal Symptoms: none, lightheaded -: minutes(s) Witnessed: no Injuries Sustained Associated with Event: None Current Symptoms: none, back to baseline History: previous syncopal episode Context: during exertion Treatments Prior to Arrival: none - Related Data Previous Rx's Medication Instructions Recorded Acetaminophen Tab [Tylenol] 650 mg PO Q4HR PRN tab 11/10/19 Albuterol Inhaler [Ventolin Hfa 2 puff INHALATION RT-QID PRN #1 11/10/19 Inhaler] puff Melatonin 5 mg PO HS PRN 30 Days tablet 11/10/19 Nicotine 14Mg/24Hr Patch [Habitrol] 1 patch TRANSDERM DAILY 14 Days 11/10/19 patch Pantoprazole [Protonix] 40 mg PO AC-BID 30 Days tablet. 11/10/19 Sertraline [Zoloft] 100 mg PO DAILY 30 Days tab 11/10/19 busPIRone HCL [Buspar] 7.5 mg PO BID 30 Days tab 11/10/19 Allergies Allergy/AdvReac Type Severity Reaction Status Date / Time latex Allergy Rash/Hives Verified 06/24/20 23:15 red dye Allergy Anaphylaxis Verified 06/24/20 23:15 venom-honey bee Allergy Anaphylaxis Verified 06/24/20 23:15 Review of Systems ROS Statement: Those systems with pertinent positive or pertinent negative responses have been documented in the HPI. ROS Other: All systems not noted in ROS Statement are negative. Past Medical History Past Medical History: Asthma Additional Past Medical History / Comment(s): barthalon cysts History of Any Multi-Drug Resistant Organisms: None Reported Past Surgical History: Orthopedic Surgery Additional Past Surgical History / Comment(s): D&C, left foot sx Past Anesthesia/Blood Transfusion Reactions: No Reported Reaction Past Psychological History: Anxiety, Depression Smoking Status: Current some day smoker Past Alcohol Use History: Occasional Past Drug Use History: Marijuana General Exam Limitations: no limitations General appearance: alert, in no apparent distress Head exam: Present: normocephalic, normal inspection. Absent: atraumatic (Forehead abrasion) Eye exam: Present: normal appearance, PERRL, EOMI. Absent: scleral icterus, conjunctival injection, periorbital swelling ENT exam: Present: normal exam, mucous membranes moist Neck exam: Present: normal inspection. Absent: tenderness, meningismus, lymphadenopathy Respiratory exam: Present: normal lung sounds bilaterally. Absent: respiratory distress, wheezes, rales, rhonchi, stridor Cardiovascular Exam: Present: regular rate, normal rhythm, normal heart sounds. Absent: systolic murmur, diastolic murmur, rubs, gallop, clicks GI/Abdominal exam: Present: soft, normal bowel sounds. Absent: distended, tenderness, guarding, rebound, rigid Extremities exam: Present: normal inspection, full ROM, normal capillary refill. Absent: tenderness, pedal edema, joint swelling, calf tenderness Back exam: Present: normal inspection Neurological exam: Present: alert, oriented X3, CN II-XII intact Psychiatric exam: Present: normal affect, normal mood Skin exam: Present: warm, dry, intact, normal color. Absent: rash Course Vital Signs 06/24/20 23:11 Temperature 98.0 F Pulse Rate 99 Respiratory 20 Rate Blood Pressure 143/88 O2 Sat by Pulse 100 Oximetry - Reevaluation(s) Reevaluation #1: Medical Record is reviewed Patient symptoms are significantly improved here in the ER Spoke with patient regarding findings here in the ER and questions answered Patient feels good for discharge home Reevaluation #2: Laceration needs no sutures just a major abrasion EKG Findings - EKG Comments: EKG Findings:: EKG shows sinus rhythm 87. AR 148 QRS 88 QTc 438 Medical Decision Making - Medical Decision Making 25 female DF for evaluation. Patient does have syncopal event. No acute cause found of syncope. She does have head injury but no other complaints - Lab Data Result diagrams: 06/25/20 00:00 06/25/20 00:00 Lab Results 03/21/21 03/21/21 03/21/21 Range/Units 23:41 23:41 23:41 WBC (3.8-10.6) k/uL RBC (3.80-5.40) m/uL Hgb (11.4-16.0) gm/dL Hct (34.0-46.0) % MCV (80.0-100.0) fL MCH (25.0-35.0) pg MCHC (31.0-37.0) g/dL RDW (11.5-15.5) % Plt Count (150-450) k/uL MPV Neutrophils % % Lymphocytes % % Monocytes % % Eosinophils % % Basophils % % Neutrophils # (1.3-7.7) k/uL Lymphocytes # (1.0-4.8) k/uL Monocytes # (0-1.0) k/uL Eosinophils # (0-0.7) k/uL Basophils # (0-0.2) k/uL Sodium (137-145) mmol/L Potassium (3.5-5.1) mmol/L Chloride (98-107) mmol/L Carbon Dioxide (22-30) mmol/L Anion Gap mmol/L BUN (7-17) mg/dL Creatinine (0.52-1.04) mg/dL Est GFR (CKD-EPI)AfAm (>60 ml/min/1.73 sqM) Est GFR (CKD-EPI)NonAf (>60 ml/min/1.73 sqM) Glucose (74-99) mg/dL Calcium (8.4-10.2) mg/dL Total Bilirubin (0.2-1.3) mg/dL AST (14-36) U/L ALT (4-34) U/L Alkaline Phosphatase (38-126) U/L Total Protein (6.3-8.2) g/dL Albumin (3.5-5.0) g/dL Urine Color Colorless Urine Appearance Clear (Clear) Urine pH 6.0 (5.0-8.0) Ur Specific [place] 1.002 (1.001-1.035) Urine Protein Negative (Negative) Urine Glucose (UA) Negative (Negative) Urine Ketones Negative (Negative) Urine Blood Negative (Negative) Urine Nitrite Negative (Negative) Urine Bilirubin Negative (Negative) Urine Urobilinogen <2.0 (<2.0) mg/dL Ur Leukocyte Esterase Negative (Negative) Ur Squamous Epith Cells <1 (0-4) /hpf Urine HCG, Qual Not Detected (Not Detectd) Salicylates mg/dL Urine Opiates Screen Not Detected (NotDetected) Ur Oxycodone Screen Not Detected (NotDetected) Urine Methadone Screen Not Detected (NotDetected) Ur Propoxyphene Screen Not Detected (NotDetected) Acetaminophen ug/mL Ur Barbiturates Screen Not Detected (NotDetected) U Tricyclic Antidepress Not Detected (NotDetected) Ur Phencyclidine Scrn Not Detected (NotDetected) Ur Amphetamines Screen Not Detected (NotDetected) U Methamphetamines Scrn Not Detected (NotDetected) U Benzodiazepines Scrn Not Detected (NotDetected) Urine Cocaine Screen Not Detected (NotDetected) U Marijuana (THC) Screen Not Detected (NotDetected) Serum Alcohol mg/dL 06/25/20 06/25/20 Range/Units 00:00 00:00 WBC 8.3 (3.8-10.6) k/uL RBC 4.94 (3.80-5.40) m/uL Hgb 13.6 (11.4-16.0) gm/dL Hct 42.3 (34.0-46.0) % MCV 85.6 (80.0-100.0) fL MCH 27.4 (25.0-35.0) pg MCHC 32.0 (31.0-37.0) g/dL RDW 13.6 (11.5-15.5) % Plt Count 364 (150-450) k/uL MPV 7.0 Neutrophils % 66 % Lymphocytes % 27 % Monocytes % 3 % Eosinophils % 2 % Basophils % 0 % Neutrophils # 5.5 (1.3-7.7) k/uL Lymphocytes # 2.3 (1.0-4.8) k/uL Monocytes # 0.3 (0-1.0) k/uL Eosinophils # 0.1 (0-0.7) k/uL Basophils # 0.0 (0-0.2) k/uL Sodium 138 (137-145) mmol/L Potassium 4.9 (3.5-5.1) mmol/L Chloride 106 (98-107) mmol/L Carbon Dioxide 25 (22-30) mmol/L Anion Gap 7 mmol/L BUN 10 (7-17) mg/dL Creatinine 0.72 (0.52-1.04) mg/dL Est GFR (CKD-EPI)AfAm >90 (>60 ml/min/1.73 sqM) Est GFR (CKD-EPI)NonAf >90 (>60 ml/min/1.73 sqM) Glucose 89 (74-99) mg/dL Calcium 9.4 (8.4-10.2) mg/dL Total Bilirubin 0.3 (0.2-1.3) mg/dL AST 23 (14-36) U/L ALT 10 (4-34) U/L Alkaline Phosphatase 70 (38-126) U/L Total Protein 7.2 (6.3-8.2) g/dL Albumin 4.3 (3.5-5.0) g/dL Urine Color Urine Appearance (Clear) Urine pH (5.0-8.0) Ur Specific [place] (1.001-1.035) Urine Protein (Negative) Urine Glucose (UA) (Negative) Urine Ketones (Negative) Urine Blood (Negative) Urine Nitrite (Negative) Urine Bilirubin (Negative) Urine Urobilinogen (<2.0) mg/dL Ur Leukocyte Esterase (Negative) Ur Squamous Epith Cells (0-4) /hpf Urine HCG, Qual (Not Detectd) Salicylates <1.0 mg/dL Urine Opiates Screen (NotDetected) Ur Oxycodone Screen (NotDetected) Urine Methadone Screen (NotDetected) Ur Propoxyphene Screen (NotDetected) Acetaminophen <10.0 ug/mL Ur Barbiturates Screen (NotDetected) U Tricyclic Antidepress (NotDetected) Ur Phencyclidine Scrn (NotDetected) Ur Amphetamines Screen (NotDetected) U Methamphetamines Scrn (NotDetected) U Benzodiazepines Scrn (NotDetected) Urine Cocaine Screen (NotDetected) U Marijuana (THC) Screen (NotDetected) Serum Alcohol 85 mg/dL - Radiology Data Radiology results: report reviewed (CT brain C-spine negative for acute disease), image reviewed Disposition Clinical Impression: Anxiety disorder, Vasovagal syncope, Head injury Disposition: HOME SELF-CARE Condition: Good Instructions (If sedation given, give patient instructions): Syncope (ED) Is patient prescribed a controlled substance at d/c from ED?: No Referrals: None,Stated [Primary Care Provider] - 1-2 days
[2020-06-24] MEDS ORDERED: LORazepam 2 MG/ML INJ IV STA (23:32)
[2020-06-24] MEDS ORDERED: SODIUM CHLORIDE 0.9% 1,000 ML IV STA (23:32)
[2020-06-24] MEDS ORDERED: ACETAMINOPHEN TAB 500 MG TAB PO STA (23:34)
--- NOTE | 2020-06-25 00:05 | CT ---
EXAMINATION TYPE: CT brain tashaine wo con DATE OF EXAM: 06/24/2020 COMPARISON: None HISTORY: Fall CT DLP: 1518.40 mGycm Automated exposure control for dose reduction was used. The ventricles and sulci appear normal. There is no mass effect nor midline shift. There is no sign o f intracranial hemorrhage. The calvarium is intact. There is no evidence of cerebral edema. Cervical vertebra have normal alignment. Posterior elements are intact. Facet joints appear intact. P revertebral soft tissues appear normal. Mastoid sinuses appear normal. Skull base is intact. IMPRESSION: Normal CT scan of the cervical spine. Normal CT scan of the brain.
[2020-06-25 00:07] LABS: Amphetamine Screen,Urine Not Detected (NotDetected); Benzodiazepines Screen,Urine Not Detected (NotDetected); Cocaine Screen,Urine Not Detected (NotDetected); Opiate Screen,Urine Not Detected (NotDetected); Phencyclidine Screen,Urine Not Detected (NotDetected); Tricyclic Antidepressant,Urine Not Detected (NotDetected)
[2020-06-25 00:08] LABS: Barbiturate Screen,Urine Not Detected (NotDetected); Methadone Screen, Urine Not Detected (NotDetected); Oxycodone Screen, Urine Not Detected (NotDetected); Urn Cannabinoid Scrn Not Detected (NotDetected)
[2020-06-25 00:19] LABS: Basophils % (A) 0 %; Eosinophils # (A) 0.1 k/uL (0-0.7); Eosinophils % (A) 2 %; HCT 42.3 % (34.0-46.0); HGB 13.6 gm/dL (11.4-16.0); Lymphocytes # (A) 2.3 k/uL (1.0-4.8); Lymphocytes % (A) 27 %; MCH 27.4 pg (25.0-35.0); MCV 85.6 fL (80.0-100.0); Monocytes # (A) 0.3 k/uL (0-1.0); Monocytes % (A) 3 %; Neutrophils # (A) 5.5 k/uL (1.3-7.7); Neutrophils % (A) 66 %; Platelet Count 364 k/uL (150-450); RBC 4.94 m/uL (3.80-5.40); RDW 13.6 % (11.5-15.5); WBC 8.3 k/uL (3.8-10.6)
[2020-06-25 00:27] LABS: Appearance,Urine Clear (Clear); Bilirubin,Urine Negative (Negative); Blood,Urine Negative (Negative); Color,Urine Colorless; Glucose,Urine (UA) Negative (Negative); Ketones,Urine Negative (Negative); Leukocyte Esterase,Urine Negative (Negative); Nitrite,Urine Negative (Negative); Protein,Urine Negative (Negative); Specific Gravity,Urine 1.002 (1.001-1.035); Squamous Epithelial Cell,Urine <1 /hpf (0-4); Urobilinogen,Urine <2.0 mg/dL (<2.0)
[2020-06-25 00:30] LABS: ALT 10 U/L (4-34); AST 23 U/L (14-36); Acetaminophen <10.0 ug/mL; African American GFR (CKD) >90 (>60 ml/min/1.73 sqM); Albumin 4.3 g/dL (3.5-5.0); Alkaline Phosphatase 70 U/L (38-126); Anion Gap 7 mmol/L; Blood Urea Nitrogen 10 mg/dL (7-17); Calcium 9.4 mg/dL (8.4-10.2); Carbon Dioxide 25 mmol/L (22-30); Chloride 106 mmol/L (98-107); Glucose 89 mg/dL (74-99); Non-African American GFR(CKD) >90 (>60 ml/min/1.73 sqM); Potassium 4.9 mmol/L (3.5-5.1); Salicylate <1.0 mg/dL; Sodium 138 mmol/L (137-145); Total Bilirubin 0.3 mg/dL (0.2-1.3); Total Protein 7.2 g/dL (6.3-8.2)
[2020-06-25 00:35] LABS: Alcohol 85 mg/dL
== END 2020-06-25 01:46 | disposition home or self-care (01) ==
LOC: EC 23:09
DX: F41.9 Anxiety disorder, unspecified (principal); S09.90XA Unspecified injury of head, initial encounter; R55 Syncope and collapse; F17.200 Nicotine dependence, unspecified, uncomplicated; Z91.040 Latex allergy status; Z91.048 Other nonmedicinal substance allergy status; Z91.030 Bee allergy status; W19.XXXA Unspecified fall, initial encounter; Y92.69 Other specified industrial and construction area as the place of occurrence of the external cause; Y99.0 Civilian activity done for income or pay
CPT/HCPCS: 99284; 96374; 96361; 36415; 93005; 80053; 85025; 81003; 81025; 80306; 80143; 80179; 72125; 70450; G0480; J2060; 80320